=== PATIENT | female | born 1945 | race Caucasian/White ===

== ENCOUNTER 2016-05-15 13:18 | Emergency (ER) | payer MEDICARE ==
[2016-05-15 14:04] LABS: BASOPHIL % 0.5 % (0.0-0.4); Eosinophil % 2.7 % (0.00-5.0); Granulocytes % 63.7 % (36.0-66.0); Lymphocytes % 22.5 % (24.0-44.0); Mean Cell Volume 89.7 fl (78-100); Mean Corpuscular Hemoglobin 30.8 pg (26-32); Mean Platelet Volume 11.5 fl (6-9.5); Monocytes % 10.6 % (0.0-12.0); Platelet Count 183 K/mm3 (150-450); Red Blood Count 4.19 M/mm3 (4.1-5.4); Red Cell Distribution Width 12.8 % (11.5-14.0); White Blood Count 10.2 K/mm3 (4.0-10.5)
[2016-05-15 14:29] LABS: ALBUMIN 3.6 g/dL (3.4-5.0); ANION GAP 15.3 MEQ/L (5-15); BILIRUBIN,TOTAL 0.6 mg/dL (0.2-1.0); Carbon Dioxide 24.3 mEq/L (21-32); Potassium 3.8 mEq/L (3.5-5.1); Total Protein 7.3 gm/dL (6.4-8.2)
--- NOTE | 2016-05-15 14:29 | XRAY ---
Indication: Weakness. Slurred speech. Multiple contiguous axial images obtained through the head without contrast. Comparison: None Stable age-appropriate global atrophy and bilateral basal ganglia physiologic calcifications. Also stable calcifications in the right insula. No acute intracranial hemorrhage, abnormal extra-axial fluid collection, or mass effect. Fourth ventricle is midline without hydrocephalus. Spence-white matter differentiation maintained. Bony calvarium intact. Visualized paranasal sinuses and mastoid air cells are pneumatized and clear. Impression: Stable right insular calcifications presumed benign given stability over the years. No new/acute intracranial abnormalities. MRI may yield further information if there remains further clinical concern. CT DI 65.18
--- NOTE | 2016-05-15 14:37 | ERPHSYRPT ---
- History of Present Illness Time Seen by Provider: 05/15/16 14:32 Source: patient, family Exam Limitations: no limitations Patient Subjective Stated Complaint: states at 1900 last pm pt began having slurred speach and "not acting right". pt states she has bruises to her left arm from falling 2 days ago. denies hitting head. Triage Nursing Assessment: pt pink, warm, dry, speach delayed with slurring. pt able to move all extremities. 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 pt c/o pain when left arm is rasied. pupils pinpoint. Physician History: The patient is a 70-year-old female who complains of slurred speech and mild weakness in her left hand since yesterday evening or about 21 hours ago. She denies drinking alcohol or taking narcotics. She says she also has some tingling in her left hand as well. Pt fell yesterday evening. Her past medical history is significant for high blood pressure, high cholesterol, urinary incontinence, GERD, and anxiety. Timing/Duration: yesterday, hour(s) (21), constant Severity: moderate Modifying Factors: Improves With: nothing Associated Symptoms: other (slurred speech and left hand weakness.) Allergies/Adverse Reactions: No Known Drug Allergies Allergy (Verified 05/15/16 13:39) Home Medications: Omeprazole 40 mg PO DAILY 05/27/13 [History] Oxybutynin Chloride Xl 5 mg [Ditropan XL 5 MG] 5 mg PO BID 05/27/13 [ History] Simvastatin 40 mg [Zocor 40 mg] 40 mg PO HS 05/27/13 [History] Gabapentin 300 mg PO TID 05/15/16 [History] Hydrocodone Bit/Acetaminophen [Hydrocodon-Acetaminophn 10-325] 1 each PO Q4- 6HPRN PRN 05/15/16 [History] Lisinopril/Hydrochlorothiazide [Lisinopril-Hctz 20-25 mg Tab] 1 each PO DAILY [History] Lorazepam 1 mg [Ativan 1 MG] 1 mg PO BID 05/15/16 [History] Venlafaxine HCl ER 75 mg [Effexor XR 75 MG] 75 mg PO DAILY 05/15/16 [ History] Hx Tetanus, Diphtheria Vaccination/Date Given: Yes (unknown) Hx Influenza Vaccination/Date Given: No Hx Pneumococcal Vaccination/Date Given: No Immunizations Up to Date: Yes - Review of Systems Constitutional: No Fever, No Chills Eyes: No Symptoms Ears, Nose, & Throat: No Symptoms Respiratory: No Cough, No Dyspnea Cardiac: No Chest Pain, No Edema, No Syncope Abdominal/Gastrointestinal: No Abdominal Pain, No Nausea, No Vomiting, No Diarrhea Genitourinary Symptoms: No Dysuria Musculoskeletal: No Back Pain, No Neck Pain Skin: No Rash Neurological: Focal Weakness (left hand), Speech Changes Psychological: No Symptoms Endocrine: No Symptoms Hematologic/Lymphatic: No Symptoms Immunological/Allergic: No Symptoms All Other Systems: Reviewed and Negative - Past Medical History Pertinent Past Medical History: Yes Neurological History: Stroke ENT History: No Pertinent History Cardiac History: Hypertension Respiratory History: No Pertinent History Endocrine Medical History: No Pertinent History Musculoskeletal History: Fractures GI Medical History: GERD History: Other Psycho-Social History: Depression Female Reproductive Disorders: No Pertinent History Other Medical History: Bladder Control, Restless leg syndrome - Past Surgical History Past Surgical History: Yes Neuro Surgical History: No Pertinent History Cardiac: No Pertinent History Respiratory: No Pertinent History Gastrointestinal: Appendectomy Genitourinary: No Pertinent History Musculoskeletal: No Pertinent History Female Surgical History: Tubal Ligation Other Surgical History: Tonsils/Adenoids - Social History Smoking Status: Current every day smoker How long have you smoked: 55 Exposure to second hand smoke: Yes Drug Use: none Patient Lives Alone: No Significant Family History: hypertension - Female History Hx Now: No - Nursing Vital Signs Nursing Vital Signs: Initial Vital Signs Temperature 98.5 F Temperature Source Oral Pulse Rate 81 Respiratory Rate 18 Blood Pressure [] 103/55 Pain Intensity 0 - Physical Exam General Appearance: no apparent distress, alert Eye Exam: other (pupils constricted) Ears, Nose, Throat Exam: normal ENT inspection, TMs normal, pharynx normal, moist mucous membranes Neck Exam: normal inspection, non-tender, supple, full range of motion Respiratory Exam: normal breath sounds, lungs clear, No respiratory distress Cardiovascular Exam: regular rate/rhythm, normal heart sounds, normal peripheral pulses Gastrointestinal/Abdomen Exam: soft, normal bowel sounds, No tenderness, No mass Pelvic Exam: not done Rectal Exam: not done Back Exam: normal inspection, normal range of motion, No CVA tenderness, No vertebral tenderness Extremity Exam: normal inspection, normal range of motion, pelvis stable Neurologic Exam: motor deficits (mild left hand motor weakness), slurred speech Skin Exam: normal color, warm, dry, No rash Lymphatic Exam: No adenopathy SpO2 Interpretation: normal SpO2: 97 Oxygen Delivery: Room Air - CT Exams Head CT Interpretation: Tele-radiologist Report, Other (stable right insular calcifications. No new acute. Per Dr Pacheco.) Ordered Tests: Active Orders 24 hr Category Date Time Status IV Insertion STAT Care 05/15/16 13:46 Active HEAD WITHOUT CONTRAST [CT] Stat Exams 05/15/16 13:47 Completed CBC W DIFF Stat Lab 05/15/16 13:54 Completed CMP Stat Lab 05/15/16 13:54 Completed PROTIME WITH INR Stat Lab 05/15/16 13:54 Completed UA Stat Lab 05/15/16 15:00 Completed Medication Summary Discontinued Medications Generic Name Dose Route Start Last Admin Trade Name Freq PRN Reason Stop Dose Admin Acetaminophen/Hydrocodone Bitart 1 tab 05/15/16 16:17 05/15/16 16:33 [place] 7.5/325 Mg Tab PO 05/15/16 16:18 1 tab STAT ONE Administration Clonazepam 0.5 mg 05/15/16 16:15 05/15/16 16:33 Klonopin 0.5 Mg PO 05/15/16 16:16 0.5 mg STAT ONE Administration Lab/Rad Data: Laboratory Result Diagrams 05/15/16 13:54 05/15/16 13:54 Laboratory Results 05/15/16 05/15/16 05/15/16 Range/Units 15:00 13:54 13:54 WBC (4.0-10.5) K/mm3 RBC (4.1-5.4) M/mm3 Hgb (12.0-16.0) gm/dl Hct (35-47) % MCV (78-100) fl MCH (26-32) pg MCHC (32-36) g/dl RDW (11.5-14.0) % Plt Count (150-450) K/mm3 MPV (6-9.5) fl Gran % (36.0-66.0) % Lymphocytes % (24.0-44.0) % Monocytes % (0.0-12.0) % Eosinophils % (0.00-5.0) % Basophils % (0.0-0.4) % Basophils # (0-0.4) INR 1.06 (0.8-3.0) Sodium 135 L (136-145) mEq/L Potassium 3.8 (3.5-5.1) mEq/L Chloride 99 (98-107) mEq/L Carbon Dioxide 24.3 (21-32) mEq/L Anion Gap 15.3 H (5-15) MEQ/L BUN 30 H (9-20) mg/dL Creatinine 2.43 H (0.55-1.30) mg/dl Estimated GFR 21 ML/MIN Glucose 235 H (70-110) MG/DL Calcium 9.0 (8.5-10.1) mg/dL Total Bilirubin 0.6 (0.2-1.0) mg/dL AST 28 (15-37) U/L ALT 25 (12-78) U/L Alkaline Phosphatase 86 (46-116) U/L Serum Total Protein 7.3 (6.4-8.2) gm/dL Albumin 3.6 (3.4-5.0) g/dL Ur Collection Type CCMS Urine Color YELLOW (YELLOW) Urine Appearance CLEAR (CLEAR) Urine pH 5.0 (5-6) Ur Specific Stanley 1.025 (1.005-1.025) Urine Protein NEGATIVE (Negative) Urine Glucose (UA) NEGATIVE (NEGATIVE) mg/dL Urine Ketones NEGATIVE (NEGATIVE) Urine Nitrite NEGATIVE (NEGATIVE) Urine Bilirubin NEGATIVE (NEGATIVE) Urine Urobilinogen 1 (0-1) mg/dL Urine WBC (Auto) NEGATIVE (NEGATIVE) Urine RBC (Auto) NEGATIVE (0-5) Sonny/ul Specimen Received 05-15-16 1512 05/15/16 Range/Units 13:54 WBC 10.2 (4.0-10.5) K/mm3 RBC 4.19 (4.1-5.4) M/mm3 Hgb 12.9 (12.0-16.0) gm/dl Hct 37.6 (35-47) % MCV 89.7 (78-100) fl MCH 30.8 (26-32) pg MCHC 34.3 (32-36) g/dl RDW 12.8 (11.5-14.0) % Plt Count 183 (150-450) K/mm3 MPV 11.5 H (6-9.5) fl Gran % 63.7 (36.0-66.0) % Lymphocytes % 22.5 L (24.0-44.0) % Monocytes % 10.6 (0.0-12.0) % Eosinophils % 2.7 (0.00-5.0) % Basophils % 0.5 (0.0-0.4) % Basophils # 0.05 (0-0.4) INR (0.8-3.0) Sodium (136-145) mEq/L Potassium (3.5-5.1) mEq/L Chloride (98-107) mEq/L Carbon Dioxide (21-32) mEq/L Anion Gap (5-15) MEQ/L BUN (9-20) mg/dL Creatinine (0.55-1.30) mg/dl Estimated GFR ML/MIN Glucose (70-110) MG/DL Calcium (8.5-10.1) mg/dL Total Bilirubin (0.2-1.0) mg/dL AST (15-37) U/L ALT (12-78) U/L Alkaline Phosphatase (46-116) U/L Serum Total Protein (6.4-8.2) gm/dL Albumin (3.4-5.0) g/dL Ur Collection Type Urine Color (YELLOW) Urine Appearance (CLEAR) Urine pH (5-6) Ur Specific Stanley (1.005-1.025) Urine Protein (Negative) Urine Glucose (UA) (NEGATIVE) mg/dL Urine Ketones (NEGATIVE) Urine Nitrite (NEGATIVE) Urine Bilirubin (NEGATIVE) Urine Urobilinogen (0-1) mg/dL Urine WBC (Auto) (NEGATIVE) Urine RBC (Auto) (0-5) Sonny/ul Specimen Received - Progress Progress: unchanged Discussed with Dr.: Other (Dr Johnson neurologist with teleneurology agrees that pt had stroke. Transfer to [facility] per hospitalist Dr Dickinson.) - Departure Time of Disposition: 15:59 Departure Disposition: Transfer (Transfer to [facility] per Dr Dickinson) Clinical Impression: Stroke Condition: Stable Critical Care Time: No Referrals: JOVANNY CH MD [Primary Care Provider] -
[2016-05-15 14:49] LABS: INR 1.06 (0.8-3.0); PROTIME 11.9 SECONDS (9.95-12.35)
[2016-05-15 15:28] LABS: COMPLETE URINE MICROSCOPIC? NO; Collection Type CCMS
[2016-05-15] MEDS ORDERED: Klonopin 0.5 MG PO ONE (16:15)
[2016-05-15] MEDS ORDERED: NORCO 7.5/325 MG TAB PO ONE (16:17)
[2016-05-15 17:08] VITALS: O2SAT 97
[2016-05-15 17:34] VITALS: BP 123/60; PULSE 78
== END 2016-05-15 18:00 | disposition short-term general hospital (02) ==
LOC: ED 13:18
DX: I63.9 Cerebral infarction, unspecified (principal); R47.81 Slurred speech; I10 Essential (primary) hypertension; Z79.899 Other long term (current) drug therapy
CPT/HCPCS: 99285; 36000; 81002; 85610; 36415; 85025; 80053; 70450; A9270

== ENCOUNTER 2017-01-15 23:06 | Emergency (ER) | payer MEDICARE ==
[2017-01-15] MEDS ORDERED: DUONEB 0.5-3 MG/3 ml Neb IH ONE ×2 (23:24→23:35)
[2017-01-15] MEDS ORDERED: solu-MEDROL 125 MG IV ONE (23:24)
[2017-01-15] MEDS ORDERED: Sodium Chloride 0.9% 1000 ML 1,000 ML IV SCH (23:30)
[2017-01-15] MEDS ORDERED: solu-MEDROL 125 MG ONE (23:34)
[2017-01-15] MEDS ORDERED: Sodium Chloride 0.9% 1000 ML 1,000 ML ONE (23:34)
--- NOTE | 2017-01-15 23:35 | ERPHSYRPT ---
- History of Present Illness Time Seen by Provider: 01/15/17 23:21 Source: patient Exam Limitations: no limitations Patient Subjective Stated Complaint: shortness of breath , cough x 2 days, states she is smoker but has cut back to half day, Triage Nursing Assessment: pt alert orientedx3, intermittant dry cough, patietn able to ambualte by self, winded on exertion, pupils perrla2, pulses equal bialteral radius, lung sounds clear diminished. skin warm, dry, and diminished. Physician History: 71-year-old white female with history of high blood pressure, GERD, depression, bladder problems Patient arrives with complaint of a cough nonproductive, sore throat, shortness of breath symptoms for 2 days Patient denies fever no vomiting no diarrhea. Past medical history includes CVA, high blood pressure, GERD, depression, bladder problems, restless legs Past surgical history includes appendectomy tubal ligation and tonsillectomy adenoidectomy, Social history positive for tobacco use denies alcohol or illicit drugs Timing/Duration: day(s) (2 days) Activities at Onset: none Severity of Dyspnea-Max: moderate Severity of Dyspnea-Current: moderate Possible Cause: no prior episodes Modifying Factors: Worsens With: nothing Associated Symptoms: constant, cough, wheezing, No intermittent, No anxiety, No chest pain/discomfort, No edema, No fever, No insomnia, No loss of appetite, No lightheadedness, No weakness, No ankle swelling, No chills, No hemoptysis, No calf pain, No dizziness, No heaviness, No heart racing, No lightheadedness, No leg swelling, No muscle spasms feet, No muscle spasms hands, No painful breathing, No productive cough, No sweating, No tightness, No tingling face, No tingling hands International travel in last 2 weeks: No Allergies/Adverse Reactions: No Known Drug Allergies Allergy (Verified 05/15/16 13:39) Home Medications: Omeprazole 40 mg PO DAILY 05/27/13 [History] Oxybutynin Chloride Xl 5 mg [Ditropan XL 5 MG] 5 mg PO BID 05/27/13 [ History] Simvastatin 40 mg [Zocor 40 mg] 40 mg PO HS 05/27/13 [History] Gabapentin 300 mg PO TID 05/15/16 [History] Hydrocodone Bit/Acetaminophen [Hydrocodon-Acetaminophn 10-325] 1 each PO Q4- 6HPRN PRN 05/15/16 [History] Venlafaxine HCl ER 75 mg [Effexor XR 75 MG] 75 mg PO DAILY 05/15/16 [ History] Losartan Potassium 50 mg [Cozaar 50 MG] 50 mg PO DAILY 01/15/17 [History] Ropinirole 2Mg [Requip 2Mg Tab] 1 tab PO DAILY 01/15/17 [History] Sitagliptin Phosphate [Januvia] 100 mg PO DAILY 01/15/17 [History] Hx Tetanus, Diphtheria Vaccination/Date Given: Yes Hx Influenza Vaccination/Date Given: No Hx Pneumococcal Vaccination/Date Given: No Immunizations Up to Date: Yes - Review of Systems Constitutional: No Fever, No Chills Eyes: No Symptoms, No Discharge, No Eye Pain, No Eye Redness, No Itchy, No Photophobia, No Tearing, No Vision Changes, No Double Vision, No Foreign Body Sensation Ears, Nose, & Throat: Throat Pain, No Ear Pain, No Ear Discharge, No Hearing Changes, No Tinnitus, No Nose Pain, No Nose Congestion, No Nose Discharge, No Sinus Drainage, No Epistaxis, No Mouth Pain, No Mouth Swelling, No Loose Teeth, No Throat Swelling, No Hoarse, No Painful Swallowing, No Snoring, No Stridor Respiratory: Cough, Dyspnea, No Cyanosis, No Dyspnea on Exertion (LICEA), No Stridor, No Wheezing Cardiac: No Chest Pain, No Edema, No Syncope Abdominal/Gastrointestinal: No Abdominal Pain, No Nausea, No Vomiting, No Diarrhea Genitourinary Symptoms: No Dysuria Musculoskeletal: No Back Pain, No Neck Pain Skin: No Rash Neurological: No Dizziness, No Focal Weakness, No Sensory Changes Psychological: No Symptoms Endocrine: No Symptoms All Other Systems: Reviewed and Negative - Past Medical History Pertinent Past Medical History: Yes Neurological History: Stroke ENT History: No Pertinent History Cardiac History: Hypertension Respiratory History: No Pertinent History Endocrine Medical History: No Pertinent History Musculoskeletal History: Fractures GI Medical History: GERD History: Other Psycho-Social History: Depression Female Reproductive Disorders: No Pertinent History Other Medical History: Bladder Control, Restless leg syndrome - Past Surgical History Past Surgical History: Yes Neuro Surgical History: No Pertinent History Cardiac: No Pertinent History Respiratory: No Pertinent History Gastrointestinal: Appendectomy Genitourinary: No Pertinent History Musculoskeletal: No Pertinent History Female Surgical History: Tubal Ligation Other Surgical History: Tonsils/Adenoids - Social History Smoking Status: Current every day smoker How long have you smoked: 55 Exposure to second hand smoke: Yes Drug Use: none Patient Lives Alone: No Significant Family History: hypertension - Female History Hx Now: No - Nursing Vital Signs Nursing Vital Signs: Initial Vital Signs Temperature 98.8 F 01/15/17 23:07 Pulse Rate 114 H 01/15/17 23:07 Respiratory Rate 24 01/15/17 23:07 Blood Pressure 122/62 01/15/17 23:07 O2 Sat by Pulse Oximetry 95 01/15/17 23:07 Pain Scale Pain Intensity 6 - Physical Exam General Appearance: mild distress, other (well-developed obese white female frequent cough, alert oriented 3) Eye Exam: PERRL/EOMI, eyes nml inspection, No scleral icterus, No pale conjunctivae, No photophobia Ears, Nose, Throat Exam: hearing grossly normal, pharyngeal erythema, No abnormal TM (R), No abnormal TM (L), No sinus pain/drainage, No hearing decreased, No nasal congestion, No tonsillar exudate, No tonsillar swelling Neck Exam: normal inspection, non-tender, supple, full range of motion Respiratory Exam: diminished breath sounds Cardiovascular/Chest Exam: normal heart sounds, regular rate/rhythm Abdominal/Gastrointestinal Exam: soft, No tenderness, No distention, No mass Extremity Exam: non-tender, normal range of motion, normal inspection, no calf tenderness, no pedal edema Peripheral Pulses Exam: dorsalis-pedis (R): 2+, dorsalis-pedis (L): 2+ Neurologic Exam: alert, oriented x 3, cooperative, 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 II-XII nml as tested, sensation nml, No motor deficits Skin Exam: normal color, warm, No dry SpO2 Interpretation: normal (97%) SpO2: 97 Oxygen Delivery: Room Air - Course Nursing assessment & vital signs reviewed: Yes EKG Interpreted by Me: RATE (110 bpm), Sinus Tach, NORMAL AXIS, Other (EKG: Sinus tachycardia 110 bpm normal axis no acute ST or T wave changes noted compared to January 21, 2012) - Radiology Exams Chest X-ray Interpretation: Interpreted by me, Other (no acute disease process noted) Ordered Tests: Active Orders 24 hr Category Date Time Status EKG-ER Only STAT Care 01/15/17 23:24 Active IV Insertion STAT Care 01/15/17 23:24 Active Pulse Oximetry (ED) STAT Care 01/15/17 23:24 Active CHEST 2 VIEWS (PA AND LAT) Stat Exams 01/15/17 23:25 Taken BLOOD CULTURE Stat Lab 01/16/17 00:45 Received CBC W DIFF Stat Lab 01/15/17 23:30 Completed CMP Stat Lab 01/15/17 23:30 Completed CULTURE, THROAT Stat Lab 01/15/17 23:35 Received CULTURE,SPUTUM Stat Lab 01/16/17 00:26 Uncollected NT PRO BNP Stat Lab 01/15/17 23:30 Completed STREP SCREEN-BETA A Stat Lab 01/15/17 23:35 Completed Respiratory MDI STAT RT 01/16/17 00:54 Completed Respiratory Nebulizer STAT RT 01/15/17 23:26 Completed Medication Summary Generic Name Dose Route Start Last Admin Trade Name Freq PRN Reason Stop Dose Admin Sodium Chloride 1,000 mls @ 100 mls/hr 01/15/17 23:30 01/15/17 23:39 Sodium Chloride 0.9% 1000 Ml IV 02/14/17 23:29 100 mls/hr .Q10H LIBIA Administration Ceftriaxone Sodium/Dextrose 1 g in 50 mls @ 100 mls/hr 01/16/17 00:54 01:02 Rocephin 1 Gm-D5w 50 Ml Bag IV 01/16/17 01:23 100 mls/hr STAT STA Administration Discontinued Medications Generic Name Dose Route Start Last Admin Trade Name Freq PRN Reason Stop Dose Admin Albuterol Sulfate 2 puff 01/16/17 00:52 01/16/17 01:06 Proventil Common Canister IH 01/16/17 00:53 2 puff 1XONLY STA Administration Albuterol/Ipratropium 3 ml 01/15/17 23:24 01/15/17 23:40 Duoneb 0.5-3 Mg/3 Ml Neb IH 01/15/17 23:25 3 ml STAT ONE Administration Albuterol/Ipratropium Confirm 01/15/17 23:35 Duoneb 0.5-3 Mg/3 Ml Neb Administered 01/15/17 23:36 Dose 3 ml IH .STK-MED ONE Azithromycin 500 mg 01/16/17 00:54 01/16/17 01:02 Zithromax 250 Mg Tablet PO 01/16/17 00:55 500 mg STAT ONE Administration Azithromycin Confirm 01/16/17 01:01 Zithromax 250 Mg Tablet Administered 01/16/17 01:02 Dose 250 mg .ROUTE .STK-MED ONE Azithromycin Confirm 01/16/17 01:03 Zithromax 250 Mg Tablet Administered 01/16/17 01:04 Dose 250 mg .ROUTE .STK-MED ONE Guaifenesin/Codeine Phosphate 10 ml 01/15/17 23:42 01/15/17 23:55 Robitussin Ac Syrup Unit Dose Cup PO 01/15/17 23:43 10 ml Q4H PRN STA Administration Guaifenesin/Codeine Phosphate Confirm 01/15/17 23:53 Robitussin Ac Syrup Unit Dose Cup Administered 01/15/17 23:54 Dose 10 ml .ROUTE .STK-MED ONE Ceftriaxone Sodium/Dextrose Confirm 01/16/17 01:01 Rocephin 1 Gm-D5w 50 Ml Bag Administered 01/16/17 01:02 Dose 1 g in 50 mls @ ud IV .STK-MED ONE Methylprednisolone Sodium Succinate 125 mg 01/15/17 23:24 01/15/17 23:39 Solu-Medrol 125 Mg IV 01/15/17 23:25 125 mg STAT ONE Administration Methylprednisolone Sodium Succinate Confirm 01/15/17 23:34 Solu-Medrol 125 Mg Administered 01/15/17 23:35 Dose 125 mg .ROUTE .STK-MED ONE Lab/Rad Data: Laboratory Result Diagrams 01/15/17 23:30 01/15/17 23:30 Laboratory Results 01/15/17 01/15/17 01/15/17 Range/Units 23:35 23:35 23:30 WBC (4.0-10.5) K/mm3 RBC (4.1-5.4) M/mm3 Hgb (12.0-16.0) gm/dl Hct (35-47) % MCV (78-100) fl MCH (26-32) pg MCHC (32-36) g/dl RDW (11.5-14.0) % Plt Count (150-450) K/mm3 MPV (6-9.5) fl Gran % (36.0-66.0) % Lymphocytes % (24.0-44.0) % Monocytes % (0.0-12.0) % Eosinophils % (0.00-5.0) % Basophils % (0.0-0.4) % Basophils # (0-0.4) Sodium 134 L (136-145) mEq/L Potassium 3.6 (3.5-5.1) mEq/L Chloride 100 (98-107) mEq/L Carbon Dioxide 25.1 (21-32) mEq/L Anion Gap 12.1 (5-15) MEQ/L BUN 12 (9-20) mg/dL Creatinine 1.25 (0.55-1.30) mg/dl Estimated GFR 45 ML/MIN Glucose 284 H (70-110) MG/DL Calcium 8.9 (8.5-10.1) mg/dL Total Bilirubin 0.50 (0.2-1.0) mg/dL AST 18 (15-37) U/L ALT 24 (12-78) U/L Alkaline Phosphatase 87 (46-116) U/L NT-Pro-B Natriuret Pep 195 H (0-125) pg/ml Serum Total Protein 7.7 (6.4-8.2) gm/dL Albumin 3.7 (3.4-5.0) g/dL Influenza Type A Ag NEGATIVE (NEGATIVE) Influenza Type B Ag NEGATIVE (NEGATIVE) RSV (PCR) NEGATIVE (Negative) Streptococcus Screen NEGATIVE (Negative) 01/15/17 Range/Units 23:30 WBC 11.9 H (4.0-10.5) K/mm3 RBC 4.31 (4.1-5.4) M/mm3 Hgb 13.3 (12.0-16.0) gm/dl Hct 39.4 (35-47) % MCV 91.4 (78-100) fl MCH 30.9 (26-32) pg MCHC 33.8 (32-36) g/dl RDW 12.8 (11.5-14.0) % Plt Count 166 (150-450) K/mm3 MPV 10.8 H (6-9.5) fl Gran % 73.9 H (36.0-66.0) % Lymphocytes % 16.1 L (24.0-44.0) % Monocytes % 8.3 (0.0-12.0) % Eosinophils % 1.4 (0.00-5.0) % Basophils % 0.3 (0.0-0.4) % Basophils # 0.03 (0-0.4) Sodium (136-145) mEq/L Potassium (3.5-5.1) mEq/L Chloride (98-107) mEq/L Carbon Dioxide (21-32) mEq/L Anion Gap (5-15) MEQ/L BUN (9-20) mg/dL Creatinine (0.55-1.30) mg/dl Estimated GFR ML/MIN Glucose (70-110) MG/DL Calcium (8.5-10.1) mg/dL Total Bilirubin (0.2-1.0) mg/dL AST (15-37) U/L ALT (12-78) U/L Alkaline Phosphatase (46-116) U/L NT-Pro-B Natriuret Pep (0-125) pg/ml Serum Total Protein (6.4-8.2) gm/dL Albumin (3.4-5.0) g/dL Influenza Type A Ag (NEGATIVE) Influenza Type B Ag (NEGATIVE) RSV (PCR) (Negative) Streptococcus Screen (Negative) - Progress Progress: improved, re-examined Air Movement: fair Progress Note: 01/16/17 00:56 This is a 71-year-old white female with history of severe CVA high blood pressure, GERD She arrives with complaint of coughing for 2 days patient with fairly frequent cough on arrival Patient with diminished breath sounds Patient with normal pulse ox on arrival however patient did have mild tachycardia on initial EKG of 110 bpm vital signs were otherwise normal On physical examination patient says throat appeared to be irritated another was a fairly stridorous cough but no stridor with breathing breath sounds were diminished no obvious wheezing Patient's white count slightly elevated on CBC of 11.9 chemistry is obtained ENP is slightly elevated 195 glucose is elevated at 284 patient is on Januvia EKG sinus tachycardia 1 10 bpm normal axis no acute ST or T wave changes compared to January 21, 2012 fluids and strep are both negative Chest x-ray slightly increased lung markings in the right lower lung base but no definite infiltrates no acute disease process noted. Strep and flu are both negative Patient is given Solu-Medrol 125 mg IV, normal saline 100 mL per hour, DuoNeb treatment, and Robitussin AC 10 [place] orally. Patient is feeling better now. Patient does appear to have bronchospasm bronchitis upper respiratory infection.. Although patient's BNP was mildly elevated no evidence of congestive heart failure. Will plan to discharge patient will give patient 1 g of Rocephin IV Zithromax 500 mg by mouth Home on Zithromax Z-Gerson, prednisone 40 mg orally daily 3 days and then 20 mg orally daily times 4 days. Patient will be given a nebulizer 2 puffs every 4-6 hours as needed. Robitussin-AC 10 mL every 6 hours as needed for cough she has been told not to take Rodman while on this product. Patient is to call her family doctor tomorrow to arrange a follow-up appointment Patient has been told to stop smoking - Departure Time of Disposition: 01:02 Departure Disposition: Home Clinical Impression: Bronchospasm with bronchitis, acute, Persistent cough, Shortness of breath Upper respiratory infection Qualifiers: URI type: unspecified URI Qualified Code(s): J06.9 - Acute upper respiratory infection, unspecified Condition: Fair Critical Care Time: No Referrals: JOVANNY CH MD [Primary Care Provider] - Additional Instructions: Return home Plenty of fluids. Albuterol inhaler 2 puffs every 4-6 hours as needed for shortness of breath. Robitussin-AC 10 mL orally every 6 hours as needed for cough. Zithromax Z-GERSON as directed. Do not take Rodman while on Robitussin. Contact your family doctor tomorrow to arrange follow-up appointment. Quit smoking. Return for acute distress or for severe symptoms. Prescriptions: Guaifenesin/Codeine Phosphate [Robitussin AC Syrup] 10 ml PO Q6HPRN PRN #120 ml PRN Reason: Cough Azithromycin 250 mg [Zithromax 250 MG TABLET] 0 mg PO ZPACK #6 tablet
[2017-01-15] MEDS ORDERED: Robitussin AC Syrup Unit Dose Cup PO STA (23:42)
[2017-01-15 23:48] LABS: BASOPHIL % 0.3 % (0.0-0.4); Eosinophil % 1.4 % (0.00-5.0); Granulocytes % 73.9 % (36.0-66.0); Lymphocytes % 16.1 % (24.0-44.0); Mean Cell Volume 91.4 fl (78-100); Mean Corpuscular Hemoglobin 30.9 pg (26-32); Mean Platelet Volume 10.8 fl (6-9.5); Monocytes % 8.3 % (0.0-12.0); Platelet Count 166 K/mm3 (150-450); Red Blood Count 4.31 M/mm3 (4.1-5.4); Red Cell Distribution Width 12.8 % (11.5-14.0); White Blood Count 11.9 K/mm3 (4.0-10.5)
[2017-01-15] MEDS ORDERED: Robitussin AC Syrup Unit Dose Cup ONE (23:53)
[2017-01-15 23:54] VITALS: PULSE 100
[2017-01-16 00:17] LABS: ALBUMIN 3.7 g/dL (3.4-5.0); ANION GAP 12.1 MEQ/L (5-15); BILIRUBIN,TOTAL 0.5 mg/dL (0.2-1.0); Carbon Dioxide 25.1 mEq/L (21-32); Potassium 3.6 mEq/L (3.5-5.1); Total Protein 7.7 gm/dL (6.4-8.2)
[2017-01-16 00:27] VITALS: BP 133/75
[2017-01-16] MEDS ORDERED: PROVENTIL COMMON CANISTER IH STA (00:52)
[2017-01-16] MEDS ORDERED: Zithromax 250 MG TABLET PO ONE (00:54)
[2017-01-16] MEDS ORDERED: ROCEPHIN 1 Gm-D5w 50 ml Bag** 1 G/50 ML IVPB IV STA (00:54)
[2017-01-16] MEDS ORDERED: Ventolin Hfa MDI IH ONE (01:00)
[2017-01-16] MEDS ORDERED: Zithromax 250 MG TABLET ONE ×2 (01:01→01:03)
[2017-01-16] MEDS ORDERED: ROCEPHIN 1 Gm-D5w 50 ml Bag** 1 G/50 ML IVPB IV ONE (01:01)
[2017-01-16 01:02] VITALS: O2SAT 97
--- NOTE | 2017-01-16 09:02 | XRAY ---
Indication: Croupy cough. Comparison: March 08, 2015. PA/lateral chest again hyperinflated and clear. Heart is not enlarged. Vascularity normal. Bony thorax intact again with mild osteopenia and degenerative changes. Impression: Stable nonacute hyperinflated chest.
== END 2017-01-16 01:15 | disposition home or self-care (01) ==
LOC: ED 23:06
DX: J06.9 Acute upper respiratory infection, unspecified (principal); J20.9 Acute bronchitis, unspecified; R05 Cough; R06.02 Shortness of breath; I10 Essential (primary) hypertension; Z79.899 Other long term (current) drug therapy
CPT/HCPCS: 36000; 36415; 71020; 80053; 83880; 85025; 87040; 87070; 87430; 87631; 93005; 94640; 96360; 96365; 96374; 99284; J0696; J2930; A9270-GY

== ENCOUNTER 2017-12-12 08:07 | Emergency (ER) | payer MEDICARE ==
--- NOTE | 2017-12-12 08:34 | ERPHSYRPT ---
- History of Present Illness Time Seen by Provider: 12/12/17 08:15 Source: patient, family Exam Limitations: clinical condition Physician History: PATIENT WITH A HISTORY OF CVA, TYPE 2 DIABETES, AND DEPRESSION SLIPPED ON PORCH FELL TO GROUND STRIKING BACK OF HEAD SUSTAINING INJURY, LACERATION, HEADACHE, NECK PAIN, LEFT SHOULDER AND FOREARM PAIN. PATIENT COMPLAINS OF NAUSEA, DENIES LOSS OF CONSCIOUSNESS, BLURRED VISION, NUMBNESS, TINGLING OR WEAKNESS OR INJURY. Occurred: just prior to arrival Severity: moderate Head Injury Location: occipital Method of Injury: fell Loss of Consciousness: dazed Associated Symptoms: nausea Allergies/Adverse Reactions: No Known Drug Allergies Allergy (Verified 12/12/17 08:30) Home Medications: Omeprazole 40 mg PO DAILY 05/27/13 [History] Oxybutynin Chloride Xl 5 mg [Ditropan XL 5 MG] 5 mg PO BID 05/27/13 [ History] Simvastatin 40 mg [Zocor 40 mg] 40 mg PO HS 05/27/13 [History] Gabapentin 300 mg PO TID 05/15/16 [History] Hydrocodone Bit/Acetaminophen [Hydrocodon-Acetaminophn 10-325] 1 each PO Q4- 6HPRN PRN 05/15/16 [History] Venlafaxine HCl ER 75 mg [Effexor XR 75 MG] 75 mg PO DAILY 05/15/16 [ History] Losartan Potassium 50 mg [Cozaar 50 MG] 50 mg PO DAILY 01/15/17 [History] Ropinirole 2Mg [Requip 2Mg Tab] 1 tab PO DAILY 01/15/17 [History] Sitagliptin Phosphate [Januvia] 100 mg PO DAILY 01/15/17 [History] Hx Tetanus, Diphtheria Vaccination/Date Given: Yes Hx Influenza Vaccination/Date Given: No Hx Pneumococcal Vaccination/Date Given: No - Review of Systems Constitutional: No Fever, No Chills Eyes: No Symptoms Ears, Nose, & Throat: No Symptoms Respiratory: No Symptoms, No Cough, No Dyspnea Cardiac: No Symptoms, No Chest Pain, No Edema, No Syncope Abdominal/Gastrointestinal: No Symptoms, No Abdominal Pain, No Nausea, No Vomiting, No Diarrhea Genitourinary Symptoms: No Symptoms, No Dysuria Musculoskeletal: Neck Pain, Injury, Joint Pain, No Back Pain Skin: No Rash Neurological: Headache, No Dizziness, No Focal Weakness, No Sensory Changes Psychological: No Symptoms Endocrine: No Symptoms All Other Systems: Reviewed and Negative - Past Medical History Pertinent Past Medical History: Yes Neurological History: Stroke ENT History: No Pertinent History Cardiac History: Hypertension Respiratory History: No Pertinent History Endocrine Medical History: No Pertinent History Musculoskeletal History: Fractures GI Medical History: GERD History: Other Psycho-Social History: Depression Female Reproductive Disorders: No Pertinent History Other Medical History: Bladder Control, Restless leg syndrome - Past Surgical History Past Surgical History: Yes Neuro Surgical History: No Pertinent History Cardiac: No Pertinent History Respiratory: No Pertinent History Gastrointestinal: Appendectomy Genitourinary: No Pertinent History Musculoskeletal: Orthopedic Surgery Female Surgical History: Tubal Ligation Other Surgical History: Tonsils/Adenoids, left hip replacem - Social History Smoking Status: Current every day smoker How long have you smoked: 55 Exposure to second hand smoke: Yes Drug Use: none Patient Lives Alone: No Significant Family History: hypertension - Nursing Vital Signs Nursing Vital Signs: Initial Vital Signs Temperature 98 F 12/12/17 08:15 Pulse Rate 68 12/12/17 08:15 Respiratory Rate 22 12/12/17 08:15 Blood Pressure 154/98 12/12/17 08:15 O2 Sat by Pulse Oximetry 99 12/12/17 08:15 Pain Scale Pain Intensity 4 - Physical Exam General Appearance: no apparent distress, alert Eye Exam: bilateral eye: normal inspection, PERRL, EOMI ENT Exam: airway nml Neck Exam: mid-line tenderness, other (APPLICATION OF RIGID CERVICAL COLLAR UPON ARRIVAL TO EMERGENCY) Cardiovascular/Respiratory Exam: chest non-tender, normal breath sounds, regular rate/rhythm, rib tenderness (TENDERNESS LEFT RIBS INFERIOR TO AXILLA 4TH TO 10TH RIBS, NO CREPITUS OR ECCHYMOSIS) Gastrointestinal/Abdominal Exam: soft, non tender, no distention Back Exam: normal inspection, No vertebral tenderness Extremity Exam: non-tender, normal range of motion, normal inspection Mental Status Exam: alert, 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 3, 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 Exam: normal hearing, normal speech, PERRL Motor/Sensory Exam: no motor deficit, no sensory deficit, CN II-XII intact DTR Exam: bicep (R): 2+, bicep (L): 2+, tricep (R): 2+, tricep (L): 2+, knee (R) : 2+, knee (L): 2+, ankle (R): 2+, ankle (L): 2+ Skin Exam: normal color, warm, dry, No rash SpO2 Interpretation: normal SpO2: 98 Oxygen Delivery: Room Air Procedures - Laceration/Wound Repair Head Wound Location: head Wound Length (cm): 5 Wound's Depth, Shape: irregular, flap Wound Explored: clean Irrigated: Yes Hibiclens Prep: Yes Anesthesia: 2% Lidocaine Volume Anesthetic (ccs): 10 Wound Debrided: minimal Wound Repaired With: sutures Suture Size/Type: 3-0 Number of Sutures: 8 Sterile Dressing Applied?: Yes - Radiology Exams Left Clavicle X-ray Interpretation: Discussed w/ radiologist, No Fracture Left Shoulder X-ray Interpretation: Discussed w/ radiologist, No Fracture (NO DISLOCATION) Left Forearm X-ray Interpretation: Discussed w/ radiologist, No Fracture Left Ribs X-ray Interpretation: Discussed w/ radiologist, No Fracture Chest X-ray Interpretation: Discussed w/ radiologist, No Fracture, No Infiltrates - CT Exams Head CT Interpretation: Discussed w/radiologist, No/Intracranial Hemorrhag (STABLE NONACUTE SENILE BRAIN WITH CHRONIC FEATURES) Cervical Spine CT Interpretation: Discussed w/radiologist, DJD, No Fracture, No Subluxation Ordered Tests: Active Orders 24 hr Category Date Time Status Cervical Collar Application STAT Care 12/12/17 08:18 Active CERVICAL SPINE WO CONTRAST [CT] Stat Exams 12/12/17 08:20 Completed CHEST 2 VIEWS (PA AND LAT) Stat Exams 12/12/17 08:21 Completed CLAVICLE Stat Exams 12/12/17 08:23 Completed FOREARM Stat Exams 12/12/17 08:21 Completed HEAD WITHOUT CONTRAST [CT] Stat Exams 12/12/17 08:19 Completed RIBS UNILATERAL Stat Exams 12/12/17 08:20 Completed SHOULDER Stat Exams 12/12/17 08:22 Completed BMP Stat Lab 12/12/17 08:27 Received CBC W DIFF Stat Lab 12/12/17 08:27 Completed Medication Summary Discontinued Medications Generic Name Dose Route Start Last Admin Trade Name Freq PRN Reason Stop Dose Admin Lidocaine HCl Confirm 12/12/17 09:23 Xylocaine 2% Hcl 20 Ml Mdv Administered 12/12/17 09:24 Dose 1 ml .ROUTE .STK-MED ONE Lab/Rad Data: Laboratory Result Diagrams 12/12/17 08:27 Laboratory Results 12/12/17 Range/Units 08:27 WBC 9.0 (4.0-10.5) K/mm3 RBC 4.70 (4.1-5.4) M/mm3 Hgb 14.8 (12.0-16.0) gm/dl Hct 42.8 (35-47) % MCV 91.1 (78-100) fl MCH 31.5 (26-32) pg MCHC 34.6 (32-36) g/dl RDW 13.3 (11.5-14.0) % Plt Count 165 (150-450) K/mm3 MPV 11.3 H (6-9.5) fl Gran % 58.7 (36.0-66.0) % Eos # (Auto) 0.22 (0-0.5) Absolute Lymphs (auto) 2.72 (1.0-4.6) Absolute Monos (auto) 0.75 (0.0-1.3) Lymphocytes % 30.3 (24.0-44.0) % Monocytes % 8.3 (0.0-12.0) % Eosinophils % 2.4 (0.00-5.0) % Basophils % 0.3 (0.0-0.4) % Absolute Granulocytes 5.27 (1.4-6.9) Basophils # 0.03 (0-0.4) - Progress Progress Note: 12/12/17 08:36 APPLICATION OF RIGID CERVICAL COLLAR UPON ARRIVAL TO EMERGENCY, SREE 5/325 ORALLY, HAD TETNUS LAST YEAR 12/12/17 10:03 Counseled pt/family regarding: lab results, diagnosis, need for follow-up, rad results - Departure Time of Disposition: 10:05 Departure Disposition: Home Clinical Impression: OCCIPITAL SCALP LACERATION, ACUTE CERVICAL STRAIN, LEFT CHEST WALL CONTUSION, LEFT SHOULDER CONTUSION Condition: Stable Critical Care Time: No Referrals: JOVANNY CH MD [Primary Care Provider] - Additional Instructions: CONTINUE ALL CURRENT MEDICATIONS DIRECTED. APPLY ICE OVER SHOULDER AND FOREARM EVERY 4 HOURS, 30 MINUTES FOR 48 HOURS. HAVE STITCHES REMOVED AT 10 DAYS. WATCH FOR SIGNS OF INFECTION, REDNESS, SWELLING OR DRAINAGE. MAY SHAMPOO HAIR UPON ARRIVAL AT HOME. FOLLOW HEAD INJURY INSTRUCTIONS FOR 24 HOURS.
[2017-12-12 08:48] LABS: BASOPHIL % 0.3 % (0.0-0.4); Basophil (Absolute #) 0.03 (0-0.4); Eosinophil % 2.4 % (0.00-5.0); Eosinophil (Absolute #) 0.22 (0-0.5); Granulocyte Absolute (ANC) 5.27 (1.4-6.9); Granulocytes % 58.7 % (36.0-66.0); Hematocrit 42.8 % (35-47); Hemoglobin 14.8 gm/dl (12.0-16.0); Lymphocyte (Absolute #) 2.72 (1.0-4.6); Lymphocytes % 30.3 % (24.0-44.0); Mean Cell Volume 91.1 fl (78-100); Mean Corpuscular Hemoglobin 31.5 pg (26-32); Mean Corpuscular Hgb Concent. 34.6 g/dl (32-36); Mean Platelet Volume 11.3 fl (6-9.5); Monocyte (Absolute #) 0.75 (0.0-1.3); Monocytes % 8.3 % (0.0-12.0); Platelet Count 165 K/mm3 (150-450); Red Cell Distribution Width 13.3 % (11.5-14.0)
--- NOTE | 2017-12-12 09:17 | XRAY ---
Indication: Pain following fall. Multiple contiguous axial images obtained through the cervical spine. Sagittal and coronal reformatted images obtained. Comparison: None Axial images negative for acute fracture or suspicious bony lesions. Small superior C5 Schmorl node. Mild/moderate multilevel degenerative endplate spurring greatest at the C5-C6 level. Additional atlantoaxial degenerative changes and moderate multilevel bilateral degenerative facet hypertrophy. Sagittal and coronal reformatted images demonstrates 3 mm anterolisthesis of C4 on C5. Also C5-C7 disc space narrowing. No acute compression fracture, subluxation, or jumped facet. Normal-appearing craniocervical junction. Visualized noncontrasted soft tissues demonstrates minimal scattered carotid calcifications bilaterally. CT head reported separately. Impression: 1. Multilevel degenerative changes including grade 1 C4 spondylolisthesis. 2. Negative acute fracture. 3. Incidental C5 Schmorl node. CTDI 61.54
--- NOTE | 2017-12-12 09:18 | XRAY ---
Indication: Pain following fall. Multiple contiguous axial images obtained through the head without contrast. Comparison: May 15, 2016 and July 30, 2012. Stable age-appropriate global atrophy, minimal periventricular degenerative micro-ischemia, remote right basal ganglia lacunar infarct, and right insular benign calcifications. No acute intracranial hemorrhage, abnormal extra-axial fluid collection, or mass effect. Fourth ventricle is midline without hydrocephalus. Bony calvarium intact. Visualized paranasal sinuses and mastoid air cells are clear. Impression: Stable nonacute senile brain with chronic features. CT DI 48.60
[2017-12-12] MEDS ORDERED: XYLOCAINE 2% HCL 20 ML MDV ONE (09:23)
--- NOTE | 2017-12-12 09:24 | XRAY ---
Indication: Pain following fall. Comparison: None 3 views of the left shoulder demonstrate mild osteopenia, mild AC degenerative arthropathy, and mild multilevel degenerative spondylosis. No other bony, articular, or soft tissue abnormalities.
--- NOTE | 2017-12-12 09:24 | XRAY ---
Indication: Pain following fall. Comparison: None 2 views of the left ribs demonstrates mild osteopenia, mild left shoulder degenerative arthropathy, and mild multilevel degenerative spondylosis. No other bony, articular, or soft tissue abnormalities.
--- NOTE | 2017-12-12 09:27 | XRAY ---
Indication: Pain following fall. Comparison: None 2 views of the left clavicle demonstrate mild osteopenia, mild AC degenerative arthropathy, and mild multilevel degenerative spondylosis. No other bony, articular, or soft tissue abnormalities.
--- NOTE | 2017-12-12 09:27 | XRAY ---
Indication: Pain following fall. Comparison: None 2 views of the left forearm demonstrates mild osteopenia, degenerative changes of the wrist, and faint vascular calcifications. No other bony, articular, or soft tissue abnormalities.
--- NOTE | 2017-12-12 09:35 | XRAY ---
Indication: Pain following fall. Comparison: January 16, 2017. PA/lateral chest again demonstrates normal heart and lungs. Bony thorax intact again with mild osteopenia and degenerative changes. No new/acute findings.
[2017-12-12 09:53] VITALS: BP 146/78; PULSE 74
[2017-12-12 09:59] VITALS: O2SAT 98
[2017-12-12 09:59] LABS: ANION GAP 15.6 MEQ/L (5-15); Calcium 9.6 mg/dL (8.4-10.2); Creatinine 1 1.12 mg/dL (0.52-1.04); Potassium 4.2 mmol/L (3.5-5.1)
== END 2017-12-12 10:20 | disposition home or self-care (01) ==
LOC: ED 08:07
DX: S01.01XA Laceration without foreign body of scalp, initial encounter (principal); S16.1XXA Strain of muscle, fascia and tendon at neck level, initial encounter; S20.212A Contusion of left front wall of thorax, initial encounter; S40.012A Contusion of left shoulder, initial encounter; R51 Headache; M54.2 Cervicalgia; R11.0 Nausea; M79.632 Pain in left forearm; W01.198A Fall on same level from slipping, tripping and stumbling with subsequent striking against other object, initial encounter; Z79.899 Other long term (current) drug therapy
CPT/HCPCS: 12002; 36415; 70450; 71046; 71100; 72125; 73000; 73030; 73090; 80048; 85025; 99284; L0172

== ENCOUNTER 2020-10-30 23:09 | Emergency (ER) | payer MEDICARE ==
[2020-10-30 23:49] LABS: Appearance CLEAR (CLEAR); Bilirubin NEGATIVE (NEGATIVE); Blood NEGATIVE Ery/ul (0-5); Epithelial Cells RARE /HPF (FEW); Glucose NEGATIVE (NEGATIVE); Ketones NEGATIVE (NEGATIVE); Leukocyte Esterase NEGATIVE (NEGATIVE); Mucus SLIGHT /HPF (NEGATIVE); Nitrite NEGATIVE (NEGATIVE); Protein,Urine Dip NEGATIVE (Negative); Urobilinogen 4 mg/dL (0-1)
[2020-10-31 00:05] LABS: Amphetamine,Urine NEGATIVE (NEGATIVE); Barbiturate,Urine NEGATIVE (NEGATIVE); Benzodiazepine,Urine NEGATIVE (NEGATIVE); Cocaine,Urine NEGATIVE (NEGATIVE); Methadone,Urine NEGATIVE (NEGATIVE); Opiate,Urine POSITIVE (NEGATIVE); PCP,Urine NEGATIVE (NEGATIVE); THC,Urine NEGATIVE (NEGATIVE)
[2020-10-31 00:25] LABS: Absolute Neutrophil Ct (ANC) 9.19 (1.4-6.9); BASOPHIL % 0.3 % (0.0-0.4); Basophil (Absolute #) 0.03 (0-0.4); Eosinophil % 0.3 % (0.00-5.0); Eosinophil (Absolute #) 0.03 (0-0.5); Hematocrit 35.8 % (35-47); Lymphocyte (Absolute #) 0.86 (1.0-4.6); Lymphocytes % 7.9 % (24.0-44.0); Mean Cell Volume 93.5 fl (78-100); Mean Corpuscular Hemoglobin 31.3 pg (26-32); Mean Corpuscular Hgb Concent. 33.5 g/dl (32-36); Mean Platelet Volume 10.4 fl (7.5-11.0); Monocyte (Absolute #) 0.78 (0.0-1.3); Monocytes % 7.2 % (0.0-12.0); Neutrophil % 84.3 % (36.0-66.0); Platelet Count 166 K/mm3 (150-450); Red Blood Count 3.83 M/mm3 (4.1-5.4); Red Cell Distribution Width 12.7 % (11.5-14.0); White Blood Count 10.9 K/mm3 (4.0-10.5)
--- NOTE | 2020-10-31 00:26 | ERPHSYRPT ---
- History of Present Illness Allergies/Adverse Reactions: No Known Drug Allergies Allergy (Verified 12/12/17 08:30) Home Medications: Omeprazole 40 mg PO DAILY 05/27/13 [History] Oxybutynin Chloride Xl 5 mg [Ditropan XL 5 MG] 5 mg PO BID 05/27/13 [History] Simvastatin 40 mg [Zocor 40 mg] 40 mg PO HS 05/27/13 [History] Gabapentin 300 mg PO TID 05/15/16 [History] Hydrocodone Bit/Acetaminophen [Hydrocodon-Acetaminophn 10-325] 1 each PO Q4- 6HPRN PRN 05/15/16 [History] Venlafaxine HCl ER 75 mg [Effexor XR 75 MG] 75 mg PO DAILY 05/15/16 [History] Losartan Potassium 50 mg [Cozaar 50 MG] 50 mg PO DAILY 01/15/17 [History] Ropinirole 2Mg [Requip 2Mg Tab] 1 tab PO DAILY 01/15/17 [History] Sitagliptin Phosphate [Januvia] 100 mg PO DAILY 01/15/17 [History] Hx Tetanus, Diphtheria Vaccination/Date Given: Yes Hx Influenza Vaccination/Date Given: No Hx Pneumococcal Vaccination/Date Given: No - Past Medical History Pertinent Past Medical History: Yes Neurological History: Stroke ENT History: No Pertinent History Cardiac History: Hypertension Respiratory History: No Pertinent History Endocrine Medical History: No Pertinent History Musculoskeletal History: Fractures GI Medical History: GERD History: Other Psycho-Social History: Depression Female Reproductive Disorders: No Pertinent History Other Medical History: Bladder Control, Restless leg syndrome - Past Surgical History Past Surgical History: Yes Neuro Surgical History: No Pertinent History Cardiac: No Pertinent History Respiratory: No Pertinent History Gastrointestinal: Appendectomy Genitourinary: No Pertinent History Musculoskeletal: Orthopedic Surgery Female Surgical History: Tubal Ligation Other Surgical History: Tonsils/Adenoids, left hip replacem - Social History Smoking Status: Current every day smoker How long have you smoked: 55 Exposure to second hand smoke: Yes Drug Use: none Patient Lives Alone: No Significant Family History: hypertension Ordered Tests: Active Orders 24 hr Category Date Time Status EKG-ER Only STAT Care 10/30/20 23:14 Active NPO (ED) STAT Care 10/30/20 23:14 Active HEAD WITHOUT CONTRAST [CT] Stat Exams 10/30/20 23:17 Taken CBC W DIFF Stat Lab 10/30/20 23:14 Ordered CMP Stat Lab 10/30/20 23:16 Ordered CULTURE,URINE Stat Lab 10/30/20 23:28 Ordered ETHYL ALCOHOL Stat Lab 10/30/20 23:14 Ordered TROPONIN Q3H Lab 10/30/20 23:15 Ordered TROPONIN Q3H Lab 10/31/20 02:15 Ordered TROPONIN Q3H Lab 10/31/20 05:15 Ordered TROPONIN Q3H Lab 10/31/20 08:15 Ordered TROPONIN Q3H Lab 10/31/20 11:15 Ordered UA W/RFX UR CULTURE Stat Lab 10/30/20 23:28 Completed Urine Triage Profile Stat Lab 10/30/20 23:28 Completed Lab/Rad Data: Laboratory Results 10/30/20 10/30/20 Range/Units 23:28 23:28 Urine Color YELLOW (YELLOW) Urine Appearance CLEAR (CLEAR) Urine pH 5.0 (5-6) Ur Specific [place] 1.020 (1.005-1.025) Urine Protein NEGATIVE (Negative) Urine Ketones NEGATIVE (NEGATIVE) Urine Blood NEGATIVE (0-5) [place]ul Urine Nitrite NEGATIVE (NEGATIVE) Urine Bilirubin NEGATIVE (NEGATIVE) Urine Urobilinogen 4 (0-1) mg/dL Ur Leukocyte Esterase NEGATIVE (NEGATIVE) Urine WBC (Auto) NONE (0-5) /HPF Urine RBC (Auto) 3-5 (0-2) /HPF U Epithel Cells (Auto) RARE (FEW) /HPF Urine Bacteria (Auto) NONE (NEGATIVE) /HPF Urine Mucus (Auto) SLIGHT (NEGATIVE) /HPF Urine Culture Reflexed ORDERED SEPARATELY (NO) Urine Glucose NEGATIVE (NEGATIVE) mg/dL Urine Opiates Level POSITIVE (NEGATIVE) Ur Methadone NEGATIVE (NEGATIVE) Urine Barbiturates NEGATIVE (NEGATIVE) Ur Phencyclidine (PCP) NEGATIVE (NEGATIVE) Urine Amphetamine NEGATIVE (NEGATIVE) U Benzodiazepine Level NEGATIVE (NEGATIVE) Urine Cocaine NEGATIVE (NEGATIVE) Urine Marijuana (THC) NEGATIVE (NEGATIVE) - Departure Referrals: JOVANNY CH MD [Primary Care Provider] -
[2020-10-31 00:39] LABS: ALBUMIN 4.2 g/dL (3.5-5.0); BILIRUBIN,TOTAL 0.7 mg/dL (0.2-1.3); Calcium 9.1 mg/dL (8.4-10.2); Creatinine 1 1.12 mg/dL (0.52-1.04); EST GLOMERULAR FILTRATION RATE 50.5 ML/MIN; Potassium 3.9 mmol/L (3.5-5.1); Total Protein 7.1 g/dL (6.3-8.2)
--- NOTE | 2020-10-31 00:56 | ERPHSYRPT ---
- History of Present Illness Source: EMS Exam Limitations: clinical condition Patient Subjective Stated Complaint: EMS states "Family states that she was not able to get up out of the chair." Triage Nursing Assessment: pt came into the er via ambulance; pt is axo x3; c/o AMS; pt denies pain; pt is drowsy; pt is answering questions appropriately; pt has gargled, slurred speak; pupils 3 mm and PERRL; no facial droop present; pt has strong katiana hand cloth folder machine; pt has strong katiana pedal push; NIH 3; follows compands; clear lung sounds in all lobes; clear heart tones; strong radial pulses; strong pedal pulses; hypertension Physician History: 75 yo wf w AMS since 22:00. Pt has a h/o CVA in the past w a facial droop per EMS hx. Trauma is denied, and pt does not seem to be on an anticoagulant. Pt arrived somewhat lethargic but easily arousable w a good airway. She is oriented x3 w a GCS of 14. Timing/Duration: other (22:00) Character of Deficits: other (Lethargy) Deficits: unable to stand Baseline/Normal Cognition: poor alertness Current Cognition: poor alertness (Oriented x3) Baseline Gait: unable to walk Associated Symptoms: fatigue, loss of consciousness, weakness, slurred speech, trouble walking, No confusion, No fever, No chills, No nausea, No vomiting, No insomnia, No muscle spasms, No numbness/tingling in legs/feet, No ringing in ears, No seizures, No vision changes, No chest pain Allergies/Adverse Reactions: No Known Drug Allergies Allergy (Verified 12/12/17 08:30) Home Medications: Omeprazole 40 mg PO DAILY 05/27/13 [History] Oxybutynin Chloride Xl 5 mg [Ditropan XL 5 MG] 5 mg PO BID 05/27/13 [History] Simvastatin 40 mg [Zocor 40 mg] 40 mg PO HS 05/27/13 [History] Gabapentin 300 mg PO TID 05/15/16 [History] Hydrocodone Bit/Acetaminophen [Hydrocodon-Acetaminophn 10-325] 1 each PO Q4- 6HPRN PRN 05/15/16 [History] Venlafaxine HCl ER 75 mg [Effexor XR 75 MG] 75 mg PO DAILY 05/15/16 [History] Losartan Potassium 50 mg [Cozaar 50 MG] 50 mg PO DAILY 01/15/17 [History] Ropinirole 2Mg [Requip 2Mg Tab] 1 tab PO DAILY 01/15/17 [History] Sitagliptin Phosphate [Januvia] 100 mg PO DAILY 01/15/17 [History] Hx Tetanus, Diphtheria Vaccination/Date Given: Yes Hx Influenza Vaccination/Date Given: No Hx Pneumococcal Vaccination/Date Given: No Travel Risk - International Travel Have you traveled outside of the country in past 3 weeks: No - Coronavirus Screening Are you exhibiting any of the following symptoms?: No Close contact with a COVID-19 positive Pt in past 14-21 Days: No - Vaccine Status Have you recieved a Covid-19 vaccination: No - Review of Systems Constitutional: No Symptoms, Lethargy Eyes: No Symptoms Ears, Nose, & Throat: No Symptoms Respiratory: No Symptoms Cardiac: No Symptoms Abdominal/Gastrointestinal: No Symptoms Genitourinary Symptoms: No Symptoms Musculoskeletal: No Symptoms Skin: No Symptoms Neurological: No Symptoms, Lethargy Psychological: No Symptoms Endocrine: No Symptoms Hematologic/Lymphatic: No Symptoms Immunological/Allergic: No Symptoms - Past Medical History Pertinent Past Medical History: Yes Neurological History: Stroke ENT History: No Pertinent History Cardiac History: Hypertension Respiratory History: COPD Endocrine Medical History: No Pertinent History Musculoskeletal History: Fractures GI Medical History: GERD History: Other Psycho-Social History: Depression Female Reproductive Disorders: No Pertinent History Other Medical History: Bladder Control, Restless leg syndrome - Past Surgical History Past Surgical History: Yes Neuro Surgical History: No Pertinent History Cardiac: No Pertinent History Respiratory: No Pertinent History Gastrointestinal: Appendectomy Genitourinary: No Pertinent History Musculoskeletal: Orthopedic Surgery Female Surgical History: Tubal Ligation Other Surgical History: Tonsils/Adenoids, left hip replacem - Social History Smoking Status: Current every day smoker How long have you smoked: 55 Exposure to second hand smoke: Yes Drug Use: none Patient Lives Alone: No Significant Family History: hypertension - Female History Hx Now: No - Nursing Vital Signs Nursing Vital Signs: Initial Vital Signs Temperature 98.1 F 10/30/20 23:21 Pulse Rate 84 10/30/20 23:21 Respiratory Rate 20 10/30/20 23:21 Blood Pressure 145/73 10/30/20 23:21 O2 Sat by Pulse Oximetry 96 10/30/20 23:21 Pain Scale Pain Intensity 0 Mildly hypertensive - Khushi Coma Scale Best Eye Response (Khushi): (3) open to voice Best Verbal Response (Khushi): (5) oriented Best Motor Response (Garita): (6) obeys commands Khushi Total: 14 - Physical Exam General Appearance: lethargy Eye Exam: bilateral eye: normal inspection, PERRL, EOMI Ears, Nose, Throat Exam: normal ENT inspection, TMs normal, moist mucous membranes Neck Exam: normal inspection, non-tender, supple, full range of motion, No meningismus, No mass, No Brudzinski, No Kernig's Respiratory: normal breath sounds, lungs clear, airway intact, No chest tenderness Cardiovascular: regular rate/rhythm, normal heart sounds, No murmur Gastrointestinal: soft, normal bowel sounds, No tenderness Back Exam: normal inspection, normal range of motion, No CVA tenderness Extremity Exam: normal inspection, normal range of motion Peripheral Pulses: carotid (R): 2+, carotid (L): 2+ Mental Status: oriented x 3 (Lethargic w good airway) 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 Exam: PERRL, abnormal eye position, No normal speech, No abnormal gag reflex, No facial asymmetry Motor/Sensory: no motor deficit, no sensory deficit, negative Babinski's sign DTR: bicep (R): 2+, bicep (L): 2+ Skin Exam: normal color, warm, dry SpO2 Interpretation: normal SpO2: 96 O2 Delivery: Room Air - Course Nursing assessment & vital signs reviewed: Yes EKG Interpreted by Me: RATE (NSR/R88/LAFB/Prolonged QTc/Low viltage) - CT Exams Head CT Interpretation: Discussed w/radiologist (Small R basal ganglia bleed/Small R intraventricular bleed), Tele-radiologist Report Ordered Tests: Active Orders 24 hr Category Date Time Status EKG-ER Only STAT Care 10/30/20 23:14 Completed NPO (ED) STAT Care 10/30/20 23:14 Completed HEAD WITHOUT CONTRAST [CT] Stat Exams 10/30/20 23:17 Taken CULTURE,URINE Stat Lab 10/30/20 23:28 Ordered PROTIME WITH INR Stat Lab 10/31/20 00:44 Completed PTT Stat Lab 10/31/20 00:44 Completed UA W/RFX UR CULTURE Stat Lab 10/30/20 23:28 Completed Urine Triage Profile Stat Lab 10/30/20 23:28 Completed Lab/Rad Data: Laboratory Result Diagrams 10/30/20 00:20 10/30/20 00:20 Laboratory Results 10/31/20 10/30/20 10/30/20 Range/Units 00:44 23:28 23:28 WBC (4.0-10.5) K/mm3 RBC (4.1-5.4) M/mm3 Hgb (12.0-16.0) gm/dl Hct (35-47) % MCV (78-100) fl MCH (26-32) pg MCHC (32-36) g/dl RDW (11.5-14.0) % Plt Count (150-450) K/mm3 MPV (7.5-11.0) fl Gran % (36.0-66.0) % Eos # (Auto) (0-0.5) Absolute Lymphs (auto) (1.0-4.6) Absolute Monos (auto) (0.0-1.3) Lymphocytes % (24.0-44.0) % Monocytes % (0.0-12.0) % Eosinophils % (0.00-5.0) % Basophils % (0.0-0.4) % Absolute Granulocytes (1.4-6.9) Basophils # (0-0.4) PT 12.9 H (9.4-12.5) SECONDS INR 1.09 (0.8-3.0) APTT 31.9 (25.1-36.5) SECONDS Sodium (137-145) mmol/L Potassium (3.5-5.1) mmol/L Chloride (98-107) mmol/L Carbon Dioxide (22-30) mmol/L Anion Gap (5-15) MEQ/L BUN (7-17) mg/dL Creatinine (0.52-1.04) mg/dL Estimated GFR ML/MIN Glucose (74-106) mg/dL Calcium (8.4-10.2) mg/dL Total Bilirubin (0.2-1.3) mg/dL AST (14-36) U/L ALT (0-35) U/L Alkaline Phosphatase (38-126) U/L Troponin I (0.000-0.034) ng/mL Serum Total Protein (6.3-8.2) g/dL Albumin (3.5-5.0) g/dL Urine Color YELLOW (YELLOW) Urine Appearance CLEAR (CLEAR) Urine pH 5.0 (5-6) Ur Specific [place] 1.020 (1.005-1.025) Urine Protein NEGATIVE (Negative) Urine Ketones NEGATIVE (NEGATIVE) Urine Blood NEGATIVE (0-5) Sonny/ul Urine Nitrite NEGATIVE (NEGATIVE) Urine Bilirubin NEGATIVE (NEGATIVE) Urine Urobilinogen 4 (0-1) mg/dL Ur Leukocyte Esterase NEGATIVE (NEGATIVE) Urine WBC (Auto) NONE (0-5) /HPF Urine RBC (Auto) 3-5 (0-2) /HPF U Epithel Cells (Auto) RARE (FEW) /HPF Urine Bacteria (Auto) NONE (NEGATIVE) /HPF Urine Mucus (Auto) SLIGHT (NEGATIVE) /HPF Urine Culture Reflexed ORDERED SEPARATELY (NO) Urine Glucose NEGATIVE (NEGATIVE) mg/dL Urine Opiates Level POSITIVE (NEGATIVE) Ur Methadone NEGATIVE (NEGATIVE) Urine Barbiturates NEGATIVE (NEGATIVE) Ur Phencyclidine (PCP) NEGATIVE (NEGATIVE) Urine Amphetamine NEGATIVE (NEGATIVE) U Benzodiazepine Level NEGATIVE (NEGATIVE) Urine Cocaine NEGATIVE (NEGATIVE) Urine Marijuana (THC) NEGATIVE (NEGATIVE) Ethyl Alcohol (0-10) mg/dL 10/30/20 10/30/20 10/30/20 Range/Units 00:20 00:20 00:20 WBC (4.0-10.5) K/mm3 RBC (4.1-5.4) M/mm3 Hgb (12.0-16.0) gm/dl Hct (35-47) % MCV (78-100) fl MCH (26-32) pg MCHC (32-36) g/dl RDW (11.5-14.0) % Plt Count (150-450) K/mm3 MPV (7.5-11.0) fl Gran % (36.0-66.0) % Eos # (Auto) (0-0.5) Absolute Lymphs (auto) (1.0-4.6) Absolute Monos (auto) (0.0-1.3) Lymphocytes % (24.0-44.0) % Monocytes % (0.0-12.0) % Eosinophils % (0.00-5.0) % Basophils % (0.0-0.4) % Absolute Granulocytes (1.4-6.9) Basophils # (0-0.4) PT (9.4-12.5) SECONDS INR (0.8-3.0) APTT (25.1-36.5) SECONDS Sodium 131 L (137-145) mmol/L Potassium 3.9 (3.5-5.1) mmol/L Chloride 96 L (98-107) mmol/L Carbon Dioxide 26 (22-30) mmol/L Anion Gap 13.0 (5-15) MEQ/L BUN 15 (7-17) mg/dL Creatinine 1.12 H (0.52-1.04) mg/dL Estimated GFR 50.5 ML/MIN Glucose 175 H (74-106) mg/dL Calcium 9.1 (8.4-10.2) mg/dL Total Bilirubin 0.70 (0.2-1.3) mg/dL AST 19 (14-36) U/L ALT 12 (0-35) U/L Alkaline Phosphatase 68 (38-126) U/L Troponin I < 0.012 (0.000-0.034) ng/mL Serum Total Protein 7.1 (6.3-8.2) g/dL Albumin 4.2 (3.5-5.0) g/dL Urine Color (YELLOW) Urine Appearance (CLEAR) Urine pH (5-6) Ur Specific [place] (1.005-1.025) Urine Protein (Negative) Urine Ketones (NEGATIVE) Urine Blood (0-5) Sonny/ul Urine Nitrite (NEGATIVE) Urine Bilirubin (NEGATIVE) Urine Urobilinogen (0-1) mg/dL Ur Leukocyte Esterase (NEGATIVE) Urine WBC (Auto) (0-5) /HPF Urine RBC (Auto) (0-2) /HPF U Epithel Cells (Auto) (FEW) /HPF Urine Bacteria (Auto) (NEGATIVE) /HPF Urine Mucus (Auto) (NEGATIVE) /HPF Urine Culture Reflexed (NO) Urine Glucose (NEGATIVE) mg/dL Urine Opiates Level (NEGATIVE) Ur Methadone (NEGATIVE) Urine Barbiturates (NEGATIVE) Ur Phencyclidine (PCP) (NEGATIVE) Urine Amphetamine (NEGATIVE) U Benzodiazepine Level (NEGATIVE) Urine Cocaine (NEGATIVE) Urine Marijuana (THC) (NEGATIVE) Ethyl Alcohol < 10 (0-10) mg/dL 10/30/20 Range/Units 00:20 WBC 10.9 H (4.0-10.5) K/mm3 RBC 3.83 L (4.1-5.4) M/mm3 Hgb 12.0 (12.0-16.0) gm/dl Hct 35.8 (35-47) % MCV 93.5 (78-100) fl MCH 31.3 (26-32) pg MCHC 33.5 (32-36) g/dl RDW 12.7 (11.5-14.0) % Plt Count 166 (150-450) K/mm3 MPV 10.4 (7.5-11.0) fl Gran % 84.3 H (36.0-66.0) % Eos # (Auto) 0.03 (0-0.5) Absolute Lymphs (auto) 0.86 L (1.0-4.6) Absolute Monos (auto) 0.78 (0.0-1.3) Lymphocytes % 7.9 L (24.0-44.0) % Monocytes % 7.2 (0.0-12.0) % Eosinophils % 0.3 (0.00-5.0) % Basophils % 0.3 (0.0-0.4) % Absolute Granulocytes 9.19 H (1.4-6.9) Basophils # 0.03 (0-0.4) PT (9.4-12.5) SECONDS INR (0.8-3.0) APTT (25.1-36.5) SECONDS Sodium (137-145) mmol/L Potassium (3.5-5.1) mmol/L Chloride (98-107) mmol/L Carbon Dioxide (22-30) mmol/L Anion Gap (5-15) MEQ/L BUN (7-17) mg/dL Creatinine (0.52-1.04) mg/dL Estimated GFR ML/MIN Glucose (74-106) mg/dL Calcium (8.4-10.2) mg/dL Total Bilirubin (0.2-1.3) mg/dL AST (14-36) U/L ALT (0-35) U/L Alkaline Phosphatase (38-126) U/L Troponin I (0.000-0.034) ng/mL Serum Total Protein (6.3-8.2) g/dL Albumin (3.5-5.0) g/dL Urine Color (YELLOW) Urine Appearance (CLEAR) Urine pH (5-6) Ur Specific [place] (1.005-1.025) Urine Protein (Negative) Urine Ketones (NEGATIVE) Urine Blood (0-5) Sonny/ul Urine Nitrite (NEGATIVE) Urine Bilirubin (NEGATIVE) Urine Urobilinogen (0-1) mg/dL Ur Leukocyte Esterase (NEGATIVE) Urine WBC (Auto) (0-5) /HPF Urine RBC (Auto) (0-2) /HPF U Epithel Cells (Auto) (FEW) /HPF Urine Bacteria (Auto) (NEGATIVE) /HPF Urine Mucus (Auto) (NEGATIVE) /HPF Urine Culture Reflexed (NO) Urine Glucose (NEGATIVE) mg/dL Urine Opiates Level (NEGATIVE) Ur Methadone (NEGATIVE) Urine Barbiturates (NEGATIVE) Ur Phencyclidine (PCP) (NEGATIVE) Urine Amphetamine (NEGATIVE) U Benzodiazepine Level (NEGATIVE) Urine Cocaine (NEGATIVE) Urine Marijuana (THC) (NEGATIVE) Ethyl Alcohol (0-10) mg/dL - Progress Progress Note: 10/31/20 01:[address] Fontnaa at [facility] 10/31/20 02:44 Pt stable w good airway when EMS assumed care. GCS 14 upon transfer. Counseled pt/family regarding: rad results - Departure Departure Disposition: Transfer Clinical Impression: Intraventricular hemorrhage Condition: Stable Critical Care Time: Yes Critical Care Time(excluding separately billable procedures): Critical 30-74 mins Referrals: JOVANNY CH MD [Primary Care Provider] -
[2020-10-31 01:01] LABS: INR 1.09 (0.8-3.0); PROTIME 12.9 SECONDS (9.4-12.5)
[2020-10-31 01:04] LABS: PTT 31.9 SECONDS (25.1-36.5)
[2020-10-31 01:12] VITALS: BP 147/77; PULSE 87
[2020-10-31 02:47] VITALS: O2SAT 96
--- NOTE | 2020-10-31 08:59 | XRAY ---
Indication: Acute mental status change. Somnolence. Multiple contiguous axial images obtained through the head without contrast. Comparison: December 12, 2017. Several images are slightly degraded by motion artifact. Again age-appropriate global atrophy, mild periventricular degenerative micro-ischemia bilaterally, and right basal ganglia remote lacunar infarct. Grossly stable bilateral basal ganglia benign calcifications. Right insula also demonstrates grossly stable benign calcifications. No gross acute intracranial hemorrhage, abnormal extra-axial fluid collection, or mass effect. Fourth ventricle is midline without hydrocephalus. Bony calvarium grossly intact. Visualized paranasal sinuses and mastoid air cells are clear. Impression: 1. Limited exam due to motion artifact. 2. Again normal aging brain including atrophy and degenerative micro-ischemia. 3. Again incidental remote lacunar infarct right basal ganglia and benign calcifications. Comment: Preliminary interpretation made by [facility] who reports right basal ganglia and right intraventricular hemorrhage. Findings are actually benign calcifications grossly unchanged.
== END 2020-10-31 01:18 | disposition short-term general hospital (02) ==
LOC: ED 23:09
DX: I61.5 Nontraumatic intracerebral hemorrhage, intraventricular (principal); Z79.899 Other long term (current) drug therapy; Z79.891 Long term (current) use of opiate analgesic; I10 Essential (primary) hypertension; J44.9 Chronic obstructive pulmonary disease, unspecified
CPT/HCPCS: 36415; 70450; 80053; 80307; 81001; 84484; 85025; 85610; 85730; 87086; 93005; 99284; 99291; G0480

== ENCOUNTER 2022-08-30 20:28 | Emergency (ER) | payer MEDICARE ==
[2022-08-30] MEDS ORDERED: XYLOCAINE 1% HCL 20 ML MDV IJ ONE (20:29)
--- NOTE | 2022-08-30 20:32 | ERPHSYRPT ---
- History of Present Illness Time Seen by Provider: 08/30/22 20:32 Source: patient, family Exam Limitations: no limitations Physician History: This is a 77-year-old white female who states she has had right labial tenderness that is enlarged and worsened and more tender in the last 3 days. Patient is a daily smoker of cigarettes. She has history of gastroesophageal reflux disease, hyperlipidemia, hypertension, diabetes, CVA and restless leg syndrome. Timing/Duration: day(s) (3), worse Activites at Onset: none Quality: other (Tender right labial abscess) Onset Location: other (Right labial/perineal abscess) Pain Radiation: none Severity of Pain-Max: moderate Severity of Pain-Current: moderate Prior abdominal problems: none Sexual intercourse history: non-contributory Modifying Factors: Improves With: palpation (Worsens) Associated Symptoms: denies symptoms Allergies/Adverse Reactions: No Known Drug Allergies Allergy (Verified 12/12/17 08:30) Home Medications: Omeprazole 40 mg PO DAILY 05/27/13 [History] Oxybutynin Chloride Xl 5 mg [Ditropan XL 5 MG] 5 mg PO BID 05/27/13 [History] Simvastatin 40 mg [Zocor 40 mg] 40 mg PO HS 05/27/13 [History] Gabapentin 300 mg PO TID 05/15/16 [History] Hydrocodone/Acetaminophen [Hydrocodon-Acetaminophn 10-325] 1 each PO Q4-6HPRN PRN 05/15/16 [History] Venlafaxine HCl ER 75 mg [Effexor XR 75 MG] 75 mg PO DAILY 05/15/16 [History] Losartan Potassium 50 mg [Cozaar 50 MG] 50 mg PO DAILY 01/15/17 [History] Ropinirole 2Mg [Requip 2Mg Tab] 1 tab PO DAILY 01/15/17 [History] Sitagliptin Phosphate [Januvia] 100 mg PO DAILY 01/15/17 [History] Hx Tetanus, Diphtheria Vaccination/Date Given: Yes Hx Influenza Vaccination/Date Given: No Hx Pneumococcal Vaccination/Date Given: No Travel Risk - International Travel Have you traveled outside of the country in past 3 weeks: No - Coronavirus Screening Are you exhibiting any of the following symptoms?: No Close contact with a COVID-19 positive Pt in past 14-21 Days: No - Vaccine Status Have you recieved a Covid-19 vaccination: No - Review of Systems Constitutional: No Symptoms Eyes: No Symptoms Ears, Nose, & Throat: No Symptoms Respiratory: No Symptoms Cardiac: No Symptoms Abdominal/Gastrointestinal: No Symptoms Genitourinary Symptoms: No Symptoms Musculoskeletal: No Symptoms Skin: Other (Abscess right labial/perineal junction) Neurological: No Symptoms Psychological: No Symptoms Endocrine: No Symptoms Hematologic/Lymphatic: No Symptoms Immunological/Allergic: No Symptoms All Other Systems: Reviewed and Negative - Past Medical History Pertinent Past Medical History: Yes Neurological History: Stroke ENT History: No Pertinent History Cardiac History: Hypertension Respiratory History: COPD Endocrine Medical History: No Pertinent History Musculoskeletal History: Fractures GI Medical History: GERD History: Other Psycho-Social History: Depression Female Reproductive Disorders: No Pertinent History Other Medical History: Bladder Control, Restless leg syndrome - Past Surgical History Past Surgical History: Yes Neuro Surgical History: No Pertinent History Cardiac: No Pertinent History Respiratory: No Pertinent History Gastrointestinal: Appendectomy Genitourinary: No Pertinent History Musculoskeletal: Orthopedic Surgery Female Surgical History: Tubal Ligation Other Surgical History: Tonsils/Adenoids, left hip replacem - Social History Smoking Status: Current every day smoker How long have you smoked: 55 Exposure to second hand smoke: Yes Drug Use: none Patient Lives Alone: No Significant Family History: hypertension - Nursing Vital Signs Nursing Vital Signs: Initial Vital Signs Blood Pressure 153/83 08/30/22 20:40 Pain Scale Pain Intensity 7 - Physical Exam General Appearance: no apparent distress, alert, anxiety Eye Exam: PERRL/EOMI Ears, Nose, Throat Exam: normal ENT inspection, moist mucous membranes Neck Exam: normal inspection, non-tender, supple, full range of motion Respiratory Exam: airway intact, No chest tenderness, No respiratory distress Gastrointestinal/Abdomen Exam: No tenderness Pelvic Exam: other (External examination shows a approximately 2-1/2 cm x 1 cm abscess in the junction between the right labia and perineum. There is pus present.) Rectal Exam: not done Back Exam: normal inspection, normal range of motion, No CVA tenderness, No vertebral tenderness Extremity Exam: normal inspection, normal range of motion, pelvis stable Neurologic Exam: alert, oriented x 3, cooperative, oxygen therapy teacher II-XII nml as tested, normal mood/affect, nml cerebellar function, nml station & gait, sensation nml Skin Exam: normal color, warm, dry Lymphatic Exam: No adenopathy SpO2 Interpretation: normal O2 Delivery: Room Air Procedures - Incision and Drainage Time of Procedure: 21:45 Site: Right labia/perineum abscess Anesthesia: 1% Lidocaine cc's of anesthesia: 2 Blade Size: scalpel I & D Procedure: betadine prep Results: small amount pus - Course Nursing assessment & vital signs reviewed: Yes Ordered Tests: Active Orders 24 hr Category Date Time Status CULTURE,WOUND Stat Lab 08/30/22 21:45 Ordered Medication Summary Discontinued Medications Generic Name Dose Route Start Last Admin Trade Name Bhavana PRN Reason Stop Dose Admin Ceftriaxone Sodium 1,000 mg 08/30/22 21:45 Ceftriaxone Sodium 1000 Mg Inj Vial IM 08/30/22 21:46 STAT ONE Oxycodone/Acetaminophen 2 tab 08/30/22 21:45 Oxycodone Hcl/Apap 5 Mg/325 Mg Tablet PO 08/30/22 21:46 SENT HOME W/ PATIENT STA Trimethoprim/Sulfamethoxazole 1 tab 08/30/22 21:48 Smz/Tmp Ds Tablet 1 Tablet PO 08/30/22 21:49 STAT ONE - Progress Progress: improved, re-examined Progress Note: 08/30/22 21:58 This patient's medical issue is 1 of low complexity. Level of complexity and the procedure and work-up performed was based on review of the patient's past medical history, review of the patient's medication list, review of the patient 's drug allergy list, history present illness and physical findings on examination. No laboratory data or radiographic studies are necessary. We prepped the area with the abscess with Betadine and then provided intradermal lidocaine 1%. We then made a vertical incision in the abscess and cultured the pus that was present. We expressed more pus present. We sent the culture for evaluation. We provided the patient with Rocephin 1 g intramuscularly and Bactrim DS 1 orally. I am sending 7 days of Bactrim DS 1 tablet orally twice a day to the pharmacy remotely. Blood Culture(s) Obtained: No Antibiotics given: Yes Counseled pt/family regarding: lab results, diagnosis, need for follow-up Medical Desision Making - Independent Historian Additional History obtained from: Relative/friend - Diagnostic Testing Diagnostic test were ordered, analyzed, and reviewed by me: No - Risk of complications The pt has a mod risk of morbidity or mortality based on: Need for prescription drug management - Departure Departure Disposition: Home Clinical Impression: Abscess of right genital labia Condition: Stable Critical Care Time: No Referrals: JOVANNY CH MD [Primary Care Provider] - Follow up/PCP as directed Additional Instructions: Sitz bath with warm soapy water or Epsom salts and water mixture 3 times a day for 48 hours. Take your antibiotics as prescribed. Follow-up with your primary care provider for further evaluation and management
[2022-08-30] MEDS ORDERED: Rocephin 1000 MG INJ IM ONE (21:45)
[2022-08-30] MEDS ORDERED: PERCOCET TABLET 5/325MG PO STA (21:45)
[2022-08-30] MEDS ORDERED: BACTRIM DS TABLET PO ONE ×2 (21:48→22:02)
[2022-08-30] MEDS ORDERED: PERCOCET TABLET 5/325MG ONE (22:02)
[2022-08-30] MEDS ORDERED: Rocephin 1000 MG INJ ONE (22:02)
[2022-08-30 22:14] VITALS: BP 142/97; PULSE 60; O2SAT 96
== END 2022-08-30 22:33 | disposition home or self-care (01) ==
LOC: ED 20:28
DX: N76.4 Abscess of vulva (principal); E78.5 Hyperlipidemia, unspecified; I10 Essential (primary) hypertension; E11.9 Type 2 diabetes mellitus without complications; Z79.84 Long term (current) use of oral hypoglycemic drugs; Z79.899 Other long term (current) drug therapy; Z28.310 Unvaccinated for COVID-19; Z72.0 Tobacco use
CPT/HCPCS: 56405; 87070; 87077; 87186; 96372; 99283; J0696; A9270-GY

== ENCOUNTER 2023-05-24 13:45 | Emergency (ER) | payer MEDICARE ==
[2023-05-24 14:17] VITALS: TEMP 97.4
[2023-05-24 14:45] LABS: Absolute Neutrophil Ct (ANC) 3.74 x10^3/uL (1.4-6.9); BASOPHIL % 0.7 % (0.0-0.4); Basophil (Absolute #) 0.04 x10^3/uL (0-0.4); Eosinophil % 2.4 % (0.00-5.0); Eosinophil (Absolute #) 0.14 x10^3/uL (0-0.5); Hematocrit 36.7 % (35-47); Hemoglobin 12.3 g/dL (12.0-16.0); IMMATURE GRAN # 0.02 x10^3u/L (0.00-0.03); IMMATURE GRAN % 0.3 % (0.00-0.4); Lymphocyte (Absolute #) 1.29 x10^3/uL (1.0-4.6); Lymphocytes % 22.2 % (24.0-44.0); Mean Cell Volume 95.3 fL (78-100); Mean Corpuscular Hemoglobin 31.9 pg (26-32); Mean Corpuscular Hgb Concent. 33.5 g/dL (32-36); Mean Platelet Volume 10.4 fL (7.5-11.0); Monocyte (Absolute #) 0.58 x10^3/uL (0.0-1.3); Neutrophil % 64.4 % (36.0-66.0); Platelet Count 147 x10^3/uL (150-450); Red Blood Count 3.85 x10^6/uL (4.1-5.4); White Blood Count 5.8 x10^3/uL (4.0-10.5)
--- NOTE | 2023-05-24 14:47 | ERPHSYRPT ---
- History of Present Illness Time Seen by Provider: 05/24/23 14:42 Source: patient, family Exam Limitations: clinical condition Patient Subjective Stated Complaint: C/O dizziness with a fall. Patient states she doesn't remember falling. She lives with a friend who states she fell at home yesterday evening. Unsure if patient his her head. Patient c/o dizziness with n/v now. Triage Nursing Assessment: Patient brought back to ER in a W/C. She is alert to name, place, situation. Patient answered, "[age] well I'm not sure but I just had a birthday" when asked her age. No skin alertations noted to head. Speech is slurred; daughter at bedside and states this is not patient's normal speech. Left hand is bruised and swollen. Physician History: C/O dizziness with a fall. Patient states she doesn't remember falling. She lives with a friend who states she fell at home yesterday evening. Unsure if patient his her head. Patient c/o dizziness with n/v now. Patient is 78-year-old female with significant past medical history of peripheral vascular disease hypertension history of lacunar infarct remotely lives with her friends at home where she fell yesterday. She went to bed yesterday at that time she was having some weakness on the left side of the body in the morning she woke up another fall and has bruised left shoulder as well as left hand she has a difficulty moving her left upper and lower extremity and has some slurred speech so she was brought into the emergency room in the emergency room patient is alert awake but has slurred speech. She was complaining of weakness in the left upper extremity and left lower extremity. She denies any headache or bleeding. Time of Onset/Last Time Seen Normal: yesterday evening Timing/Duration: yesterday Severity: moderate Character of Deficits: new weakness, altered sensation Deficits: falling, off balance Baseline/Normal Cognition: alert oriented x 3 Current Cognition: alert oriented x 3 Associated Symptoms: confusion, nausea, vomiting, weakness, No loss of consciousness Allergies/Adverse Reactions: No Known Drug Allergies Allergy (Verified 05/24/23 14:00) Home Medications: Omeprazole 40 mg PO DAILY 05/27/13 [History] Oxybutynin Chloride Xl 5 mg [Ditropan XL 5 MG] 10 mg PO BID 05/27/13 [History] Gabapentin 300 mg PO TID 05/15/16 [History] Venlafaxine HCl ER 75 mg [Effexor XR 75 MG] 75 mg PO DAILY 05/15/16 [History] ARIPiprazole [Aripiprazole] 1 tab PO HS 05/24/23 [History] Aspirin EC 81 mg [Ecotrin 81 mg] 1 tab PO DAILY 05/24/23 [History] Atorvastatin Calcium 1 tab PO DAILY 05/24/23 [History] Carvedilol [Coreg ] 1 tab PO BID 05/24/23 [History] Empagliflozin [Jardiance] 1 tab PO DAILY 05/24/23 [History] Furosemide [Lasix] 1 tab PO DAILY 05/24/23 [History] Metformin HCl 500 mg [Glucophage 500 MG] 1 tab PO BID 05/24/23 [History] Ropinirole HCl 1.5 mg PO HS 05/24/23 [History] Sacubitril/Valsartan [Entresto 49 mg-51 mg Tablet] 1 tab PO BID 05/24/23 [ History] Spironolactone 25 mg [Aldactone 25 MG] 0.5 tab PO DAILY 05/24/23 [History] Trazodone HCl 1 tab PO HS 05/24/23 [History] Venlafaxine HCl [Venlafaxine HCl ER] 1 tab PO DAILY 05/24/23 [History] Hx Tetanus, Diphtheria Vaccination/Date Given: Yes Hx Influenza Vaccination/Date Given: Yes Hx Pneumococcal Vaccination/Date Given: Yes Immunizations Up to Date: Yes Travel Risk - International Travel Have you traveled outside of the country in past 3 weeks: No - Emerging Infectious Disease Are you exhibiting symptoms associated with any current EIDs: Yes Symptoms: Vomitting - Review of Systems Constitutional: Lethargy, No Fever, No Chills Eyes: No Symptoms Ears, Nose, & Throat: No Symptoms Respiratory: No Cough, No Dyspnea Cardiac: No Chest Pain, No Edema, No Syncope Abdominal/Gastrointestinal: Nausea, Vomiting, No Abdominal Pain, No Diarrhea Genitourinary Symptoms: No Dysuria Musculoskeletal: No Back Pain, No Neck Pain Skin: No Rash Neurological: Dizziness, Focal Weakness, Gait Changes, Lethargy, Sensory Changes, Speech Changes, No Headache Psychological: No Symptoms Endocrine: No Symptoms All Other Systems: Reviewed and Negative - Past Medical History Pertinent Past Medical History: Yes Neurological History: Stroke ENT History: No Pertinent History Cardiac History: High Cholesterol, Hypertension Respiratory History: COPD Endocrine Medical History: Diabetes Type II Musculoskeletal History: Fractures GI Medical History: GERD History: Other Psycho-Social History: Depression Female Reproductive Disorders: No Pertinent History Other Medical History: Bladder Control, Restless leg syndrome - Past Surgical History Past Surgical History: Yes Neuro Surgical History: No Pertinent History Cardiac: No Pertinent History Respiratory: No Pertinent History Gastrointestinal: Appendectomy Genitourinary: No Pertinent History Musculoskeletal: Orthopedic Surgery Female Surgical History: Tubal Ligation Other Surgical History: left hip replacement Significant Family History: hypertension - Social History Smoking Status: Current every day smoker How long have you smoked: 60+ years Exposure to second hand smoke: Yes Drug Use: none Patient Lives Alone: No - Nursing Vital Signs Nursing Vital Signs: Initial Vital Signs Blood Pressure 96/60 03//24 14:00 Pain Scale Pain Intensity 0 - [place] Coma Scale Best Eye Response ([place]): (4) open spontaneously Best Verbal Response (Khushi): (5) oriented Best Motor Response (Khushi): (6) obeys commands [place] Total: 15 - Physical Exam General Appearance: no apparent distress, alert Eye Exam: bilateral eye: PERRL, EOMI Ears, Nose, Throat Exam: normal ENT inspection, moist mucous membranes Neck Exam: normal inspection, non-tender, supple Respiratory: normal breath sounds, lungs clear, airway intact, No respiratory distress Cardiovascular: regular rate/rhythm, No edema Gastrointestinal: soft, No tenderness, No distention Back Exam: normal inspection Extremity Exam: normal inspection, No pedal edema Peripheral Pulses: carotid (R): 1+, carotid (L): 1+, femoral (R): 1+, femoral (L): 1+, dorsalis-pedis (R): 1+, dorsalis-pedis (L): 1+ Mental Status: alert, oriented x 3 share holder Exam: tongue midline Coordination/Gait: normal finger to nose Motor/Sensory: weak motor strength LUE, weak motor strength LLE DTR: bicep (R): 2+, bicep (L): 1+, tricep (R): 2+, tricep (L): 1+, knee (R): 2+, knee (L): 1+, ankle (R): 2+, ankle (L): 1+ Skin Exam: normal color, warm, dry, No rash SpO2 Interpretation: normal SpO2: 95 O2 Delivery: Room Air - Course Nursing assessment & vital signs reviewed: Yes Ordered Tests: Active Orders 24 hr Category Date Time Status EKG-ER Only STAT Care 05/24/23 14:32 Active IV Insertion STAT Care 05/24/23 14:32 Active NPO (ED) STAT Care 05/24/23 14:32 Active Oxygen-ED Only Nasal Cannula 2 lpm Care 05/24/23 14:32 Active CHEST 1 VIEW (PORTABLE) Stat Exams 05/24/23 14:32 Taken HAND (MINIMUM 3 VIEWS) Stat Exams 05/24/23 14:00 Taken HEAD WITHOUT CONTRAST [CT] Stat Exams 05/24/23 14:00 Completed MRI BRAIN W & W/O CONTRAST [MRI] Stat Exams 05/26/23 07:00 Ordered CBC W DIFF Stat Lab 05/24/23 14:20 Completed CMP Stat Lab 05/24/23 14:20 Completed TROPONIN Q4H Lab 05/24/23 18:45 Ordered TROPONIN Q4H Lab 05/24/23 22:45 Ordered UA W/RFX UR CULTURE Stat Lab 05/24/23 15:39 Received Medication Summary Generic Name Dose Route Start Last Admin Trade Name Freq PRN Reason Stop Dose Admin Sodium Chloride 1,000 mls @ 100 mls/hr 05/24/23 14:45 05/24/23 14:51 Sodium Chloride 0.9% 1000 Ml IV 06/23/23 14:44 100 mls/hr .Q10H LIBIA Administration Lab/Rad Data: Laboratory Result Diagrams 05/24/23 14:20 05/24/23 14:20 Laboratory Results 05/24/23 05/24/23 05/24/23 Range/Units 14:20 14:20 14:20 WBC 5.8 (4.0-10.5) x10^3/uL RBC 3.85 L (4.1-5.4) x10^6/uL Hgb 12.3 (12.0-16.0) g/dL Hct 36.7 (35-47) % MCV 95.3 (78-100) fL MCH 31.9 (26-32) pg MCHC 33.5 (32-36) g/dL RDW 13.0 (11.5-14.0) % Plt Count 147 L (150-450) x10^3/uL MPV 10.4 (7.5-11.0) fL Gran % 64.4 (36.0-66.0) % Immature Gran % (Auto) 0.3 (0.00-0.4) % Nucleat RBC Rel Count 0.0 (0.00-0.1) % Eos # (Auto) 0.14 (0-0.5) x10^3/uL Immature Gran # (Auto) 0.02 (0.00-0.03) x10^3u/L Absolute Lymphs (auto) 1.29 (1.0-4.6) x10^3/uL Absolute Monos (auto) 0.58 (0.0-1.3) x10^3/uL Absolute Nucleated RBC 0.00 (0.00-0.01) x10^3u/L Lymphocytes % 22.2 L (24.0-44.0) % Monocytes % 10.0 (0.0-12.0) % Eosinophils % 2.4 (0.00-5.0) % Basophils % 0.7 (0.0-0.4) % Absolute Granulocytes 3.74 (1.4-6.9) x10^3/uL Basophils # 0.04 (0-0.4) x10^3/uL Sodium 138 (135-145) mmol/L Potassium 4.0 (3.5-5.1) mmol/L Chloride 101 (98-107) mmol/L Carbon Dioxide 29 (22-30) mmol/L Anion Gap 11.7 (5-15) MEQ/L BUN 24 H (7-17) mg/dL Creatinine 1.87 H (0.52-1.04) mg/dL Estimated GFR 27.4 ML/MIN Glucose 165 H (74-106) mg/dL Calcium 9.0 (8.4-10.2) mg/dL Total Bilirubin 0.40 (0.2-1.3) mg/dL AST 20 (14-36) U/L ALT 16 (0-35) U/L Alkaline Phosphatase 88 (38-126) U/L Troponin 0.01 (0.00-0.03) ng/mL Serum Total Protein 6.9 (6.3-8.2) g/dL Albumin 3.8 (3.5-5.0) g/dL CT/HEAD WITHOUT CONTRAST CLINICAL HISTORY: Fall, dizziness, slurred speech TECHNIQUE: An axial contrast-enhanced CT scan of the brain was performed from the skull base to the high parietal region without contrast with multiple reformats. COMPARISON: None. FINDINGS: The visualized brain parenchyma senile atrophic changes with prominent ventricles and extra-axial CSF spaces. Focal area of CSF density noted at the right basal ganglia suggestive of chronic infarction. Periventricular and deep white matter hypodensities suggesting chronic small vessels disease. Bilateral basal ganglia calcifications noted. No acute infarction. No focal parenchymal abnormalities are demonstrated. Spence-white matter differentiation is maintained. No midline shifts or deformity. No intracerebral or extra axial hematoma. Normal CT appearance of the posterior fossa structures namely the cerebellar hemispheres, brainstem and cerebellar peduncles. The IACs are unremarkable. The cerebello-pontine angles are clear. The pituitary gland, the pineal gland, the optic chiasm is unremarkable. The osseous structures in the skull base are unremarkable. No definite calvarium fractures. Scanned paranasal sinuses are clear. IMPRESSION: 1. Senile atrophic changes of brain parenchyma, with chronic microvascular ischemic changes. 2. Old infarction at right basal ganglia. No acute insult. 3. Early changes of acute stroke may sometimes not be detected on CT scan. If clinically suspicious, MRI with diffusion-weighted imaging is recommended for further evaluation. - Progress Progress: unchanged Progress Note: 05/24/23 16:03 Teleneurology consult obtained. Teleneurologist advises patient to have a CT angiogram of cerebral arteries but due to patient GFR which is only 27 it is contraindicated. So he advised patient to get MR angiogram which we could not do it here so he advised patient to be transferred to another hospital where an MR angiogram can be done. Patient will be transferred to [facility] for further management. Discussed with .: Other (Dr Flood at [facility], Hospitalist.) Will see patient in: other ([facility]) Counseled pt/family regarding: lab results, diagnosis, need for follow-up, rad results Medical Desision Making - Independent Historian Additional History obtained from: Family - Diagnostic Testing Diagnostic test were ordered, analyzed, and reviewed by me: Yes Radiological Interpretation: Teleradiologist Report - Risk of complications The pt has a high risk of morbidity or mortality based on: Drug therapy requiring intensive monitoring for toxicity, Decision regarding hospitilization or escalation of hosp level of care - Departure Departure Disposition[facility] Clinical Impression: Left hemiparesis Cerebrovascular accident (CVA) due to embolism Qualifiers: Precerebral and cerebral artery: other precerebral artery Qualified Code(s): I63.19 - Cerebral infarction due to embolism of other precerebral artery Condition: Fair Critical Care Time: Yes Critical Care Time(excluding separately billable procedures): Critical 75-104 mins Referrals: JOVANNY CH MD [Primary Care Provider] - Follow up/PCP as directed
[2023-05-24] MEDS ORDERED: Sodium Chloride 0.9% 1000 ML 1,000 ML ONE (14:50)
[2023-05-24] MEDS: Sodium Chloride 0.9% 1000 ML 1,000 ML IV SCH (14:51)
--- NOTE | 2023-05-24 14:59 | XRAY ---
CLINICAL HISTORY: Fall, dizziness, slurred speech TECHNIQUE: An axial contrast-enhanced CT scan of the brain was performed from the skull base to the high parietal region without contrast with multiple reformats. COMPARISON: None. FINDINGS: The visualized brain parenchyma senile atrophic changes with prominent ventricles and extra-axial CSF spaces. Focal area of CSF density noted at the right basal ganglia suggestive of chronic infarction. Periventricular and deep white matter hypodensities suggesting chronic small vessels disease. Bilateral basal ganglia calcifications noted. No acute infarction. No focal parenchymal abnormalities are demonstrated. Spence-white matter differentiation is maintained. No midline shifts or deformity. No intracerebral or extra axial hematoma. Normal CT appearance of the posterior fossa structures namely the cerebellar hemispheres, brainstem and cerebellar peduncles. The IACs are unremarkable. The cerebello-pontine angles are clear. The pituitary gland, the pineal gland, the optic chiasm is unremarkable. The osseous structures in the skull base are unremarkable. No definite calvarium fractures. Scanned paranasal sinuses are clear. IMPRESSION: 1. Senile atrophic changes of brain parenchyma, with chronic microvascular ischemic changes. 2. Old infarction at right basal ganglia. No acute insult. 3. Early changes of acute stroke may sometimes not be detected on CT scan. If clinically suspicious, MRI with diffusion-weighted imaging is recommended for further evaluation. ER was called at [phone] at 01:[address] [facility], and the results were communicated to Dr. Arden Crystal. Electronically Signed by: Rosa De Souza MD. (05/24/2023 14:56:02 EDT)
[2023-05-24 15:01] LABS: ALBUMIN 3.8 g/dL (3.5-5.0); ANION GAP 11.7 MEQ/L (5-15); BILIRUBIN,TOTAL 0.4 mg/dL (0.2-1.3); Creatinine 1 1.87 mg/dL (0.52-1.04); EST GLOMERULAR FILTRATION RATE 27.4 ML/MIN; Total Protein 6.9 g/dL (6.3-8.2)
[2023-05-24 15:54] LABS: Appearance Clear (Clear); Bilirubin Negative (Negative); Blood Negative (Negative); Glucose, Urine >=1000 mg/dL (Negative); Ketones Negative (Negative); Leukocyte Esterase Negative (Negative); Nitrite Negative (Negative); Protein,Urine Dip Negative (Negative); Urobilinogen 0.2 mg/dL (0.2)
[2023-05-24 16:01] LABS: Bacteria Moderate /HPF (None Seen); Epithelial Cells None Seen /HPF (None Seen); Hyaline Casts NONE SEEN /LPF (0-2); RBC 0-2 /HPF (0-5)
[2023-05-24 16:04] LABS: ADD URINE CULTURE? YES (NO)
[2023-05-24 16:05] VITALS: O2SAT 95
[2023-05-24 17:30] VITALS: PULSE 64; RESP 19
[2023-05-24 17:48] LABS: Slide Review 1 YES
[2023-05-24 18:00] VITALS: BP 109/70
--- NOTE | 2023-05-24 20:22 | XRAY ---
Indication: Left-sided weakness. Comparison: December 12, 2017 Portable chest remains hyperinflated and clear. Heart not enlarged with new left dual-lead pacemaker. Bony thorax intact again with osteopenia and degenerative changes. Impression: Nonacute chest with chronic features.
--- NOTE | 2023-05-24 20:22 | XRAY ---
Indication: Pain, bruising, and swelling following fall. Comparison: None 3 view left hand demonstrates osteopenia, mild degenerative changes all IP/MCP joints, mild/moderate 1st metacarpal multangular scaphoid degenerative changes, radiocarpal degenerative joint space narrowing, and widened scapholunate interval favoring underlying ligamentous tear. No other bony, articular, or soft tissue abnormalities. Impression: Nonacute left hand with chronic features.
== END 2023-05-24 18:05 | disposition short-term general hospital (02) ==
LOC: ED 13:45
DX: I63.19 Cerebral infarction due to embolism of other precerebral artery (principal); I69.354 Hemiplegia and hemiparesis following cerebral infarction affecting left non-dominant side; R42 Dizziness and giddiness; E78.5 Hyperlipidemia, unspecified; I10 Essential (primary) hypertension; E11.9 Type 2 diabetes mellitus without complications; Z79.84 Long term (current) use of oral hypoglycemic drugs; Z79.899 Other long term (current) drug therapy; Z72.0 Tobacco use
CPT/HCPCS: 36000; 36415; 70450; 71045; 73130; 80053; 81001; 84484; 85025; 87077; 87086; 87186; 93005; 99285; 99291; 99292